=== PATIENT | male | born 1955 | race Caucasian/White ===

== ENCOUNTER 2016-11-23 20:21 | Inpatient (IN) | payer BC, MEDICARE ==
[~2016-11-23] VITALS: Ht 180.3 cm; Wt 114.6 kg
[~2016-11-23 20:21] MED LIST: AMLO5TAB96; ASPI81; ATOR20TA42; GLUC5TAB3; TOPR25TA2
[2016-11-23 20:24] VITALS: BP 197/89; PULSE 75; RESP 20; TEMP 97.5; O2SAT 100
[2016-11-23 20:30] VITALS: PULSE 59; RESP 18; O2SAT 100
[2016-11-23] MEDS ORDERED: PIPERACIL-TAZO 3.375 GM PREMIX 50 ML IV ONE (20:45)
[2016-11-23] MEDS ORDERED: VANCOMYCIN INJ 1,000 MG in SODIUM CHLOR 0.9% 250 ML INJ 250 ML IV ONE (20:45)
--- NOTE | 2016-11-23 20:45 | PD ---
Physical Exam Narrative Patient was seen and examined with my visitor services information assistant. Data Data Last Documented VS Vital Signs Date Time Temp Pulse Resp B/P Pulse Ox O2 Delivery O2 Flow Rate FiO2 11/23/16 21:52 61 22 154/70 99 Nasal Cannula 2 11/23/16 20:24 97.5 Orders Electrocardiogram (11/23/16 20:26) Complete Blood Count With Diff (11/23/16 20:26) Comprehensive Metabolic Panel (11/23/16 20:26) Prothrombin Time / Inr (Pt) (11/23/16 20:26) Act Partial Throm Time (Ptt) (11/23/16 20:26) Blood Culture (11/23/16 20:26) C-Reactive Protein (Crp) (11/23/16 20:26) Magnesium (Mg) (11/23/16 20:26) Chest, Single Ap (11/23/16 20:26) Iv Access Insert/Monitor (11/23/16 20:26) Ecg Monitoring (11/23/16 20:26) Oximetry (11/23/16 20:26) Ct Soft Tiss Neck W Iv Cont (11/23/16 ) Ct Thorax/ Chest W Iv Contrast (11/23/16 ) Lactic Acid (11/23/16 20:32) Vancomycin Inj (Vancomycin Inj) (11/23/16 20:45) Piperacil-Tazo 3.375 Gm Premix (Zosyn 3. (11/23/16 20:45) Arterial Blood Gas (Abg) (11/23/16 ) Iohexol 350 Inj (Omnipaque 350 Inj) (11/23/16 22:19) Labs Laboratory Tests Test 11/23/16 11/23/16 20:30 20:47 White Blood Count 8.4 TH/MM3 Red Blood Count 3.20 MIL/MM3 Hemoglobin 9.7 GM/DL Hematocrit 27.9 % Mean Corpuscular Volume 87.2 FL Mean Corpuscular Hemoglobin 30.4 PG Mean Corpuscular Hemoglobin 34.9 % Concent Red Cell Distribution Width 12.9 % Platelet Count 277 TH/MM3 Mean Platelet Volume 8.0 FL Neutrophils (%) (Auto) 68.4 % Lymphocytes (%) (Auto) 18.0 % Monocytes (%) (Auto) 11.0 % Eosinophils (%) (Auto) 2.1 % Basophils (%) (Auto) 0.5 % Neutrophils # (Auto) 5.7 TH/MM3 Lymphocytes # (Auto) 1.5 TH/MM3 Monocytes # (Auto) 0.9 TH/MM3 Eosinophils # (Auto) 0.2 TH/MM3 Basophils # (Auto) 0.0 TH/MM3 CBC Comment DIFF FINAL Differential Comment Prothrombin Time 10.4 SEC Prothromb Time International 0.9 RATIO Ratio Activated Partial 27.3 SEC Thromboplast Time Sodium Level 134 MEQ/L Potassium Level 4.3 MEQ/L Chloride Level 97 MEQ/L Carbon Dioxide Level 29.2 MEQ/L Anion Gap 8 MEQ/L Blood Urea Nitrogen 9 MG/DL Creatinine 0.72 MG/DL Estimat Glomerular Filtration 110 ML/MIN Rate Random Glucose 199 MG/DL Lactic Acid Level 1.3 mmol/L Calcium Level 9.1 MG/DL Magnesium Level 2.0 MG/DL Total Bilirubin 0.3 MG/DL Aspartate Amino Transf 25 U/L (AST/SGOT) Alanine Aminotransferase 34 U/L (ALT/SGPT) Alkaline Phosphatase 82 U/L C-Reactive Protein 2.00 MG/DL Total Protein 7.1 GM/DL Albumin 3.2 GM/DL Blood Gas Puncture Site RT RADIAL Blood Gas Patient Temperature 98.6 Blood Gas HCO3 26 mmol/L Blood Gas Base Excess 2.6 mmol/L Blood Gas Oxygen Saturation 93 % Arterial Blood pH 7.49 Arterial Blood Partial 35 mmHg Pressure CO2 Arterial Blood Partial 85 mmHG Pressure O2 Arterial Blood Oxygen Content 13.1 Vol % Arterial Blood 2.3 % Carboxyhemoglobin Arterial Blood Methemoglobin 1.8 % Blood Gas Hemoglobin 9.9 G/DL Oxygen Delivery Device NASAL CANNULA Blood Gas Liter Flow 2 L/M [facility] Supervised Visit with BENITO: Yes Interpretation(s) Last Impressions Chest X-Ray 11/23/162025 Signed Impressions: Service Date/Time: Wednesday, November 23, 2016 20:42 - CONCLUSION: No acute disease. Derrick Hooks MD Neck CT 11/23/16 0000 Signed Impressions: Service Date/Time: Wednesday, November 23, 2016 22:17 - CONCLUSION: 1. Postsurgical changes left face, neck and left chest. 2. Airway is intact. Derrick Hooks MD Chest CT 11/23/16 0000 Signed Impressions: Service Date/Time: Wednesday, November 23, 2016 22:17 - CONCLUSION: 1. No infiltrate, mass or pleural effusion. 2. 7 mm nodule in the right lower lobe, likely benign. Followup CT chest in 3 months recommended for stability. 3. Cardiomegaly and coronary artery calcifications. Derrick Hooks MD 11:03 PM. CBC with WBC 8.4. Hemoglobin 9.7. Hematocrit 27.9. Normal differential. Sodium 134. Lactic acid 1.3. Glucose 199. C-reactive protein 2.0. ABG at 2 L nasal cannula, pH 7.49. PCO2 35. PO2 85. Narrative Course Vancomycin 1 g IV given. Zosyn 3.375 g IV given. Normal saline solution 1 25 cc an hour. Diagnosis Primary Impression: Cellulitis, neck Admitting Information Admitting Physician Requests: Admit Kayode Alva MD Nov 23, 2016 20:44
--- NOTE | 2016-11-23 20:50 | PD ---
HPI Chief Complaint: Back/ Neck Pain or Injury Time Seen by Provider: 20:45 Travel History International Travel<30 days: No Contact w/Intl Traveler<30days: No Traveled to known affect area: No History of Present Illness HPI 61-year-old male that presents to the ED for evaluation of shortness of breath and pain in his neck. 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 Per patient his been doing well since but for the past 5 hours his been having more shortness of breath and pain in the left side of his body. Patient is already given pain medication for this. Surgery occurring [place]. Per patient his pain is 10 out of 10 and he feels like he cannot swallow secondary to the swelling. He denies any fevers chills or sweats. Patient has fresh surgical scars on his chest, neck, left face and behind the left ear. Patient for she did not come with any medical records from the surgical area but does stay on the rehabilitation facility where he was sent after having the surgery. He has an allergy to morphine. Patient already takes a fentanyl patch. Patient complains to the shortness of breath is more because he doesn't feel like he can't breathe because there is something in his neck. Patient does have significant swelling in this area and surgical scars in the area. He does have erythema around it as well. PFSH Past Medical History Arthritis: Yes Asthma: No Autoimmune Disease: No Blood Disorders: No Heart Rhythm Problems: No Cancer: No Cardiovascular Problems: Yes High Cholesterol: Yes Chest Pain: No Congestive Heart Failure: No COPD: No Cerebrovascular Accident: No Diabetes: Yes Patient Takes Glucophage: No Diminished Hearing: No Endocrine: Yes Glaucoma: No Genitourinary: No Headaches: No Hepatitis: No Hypertension: Yes Immune Disorder: No Kidney Stones: No Musculoskeletal: Yes Neurologic: No Psychiatric: No Reproductive: No Respiratory: No Migraines: No Myocardial Infarction: No Renal Failure: No Seizures: No Sleep Apnea: No Thyroid Disease: No Past Surgical History Abdominal Surgery: Yes (APPENDECTOMY) AICD: No Appendectomy: Yes Arteriovenous Shunt: No Cardiac Surgery: No Ear Surgery: No Endocrine Surgery: No Eye Surgery: No Genitourinary Surgery: No Gynecologic Surgery: No Insulin Pump: No Joint Replacement: No Oral Surgery: Yes (ORAL RECONSTRUCTIVE DUE TO CANCER ) Pacemaker: No Thoracic Surgery: No Other Surgery: Yes Social History Alcohol Use: Yes (SOCIALLY, BEER) Tobacco Use: No Substance Use: No Allergies-Medications (Allergen,Severity, Reaction): Coded Allergies: Morphine (Verified Allergy, Unknown, swelling, 11/23/16) Reported Meds & Prescriptions Reported Meds & Active Scripts Active Reported Clopidogrel (Clopidogrel Bisulfate) 75 Mg Tab 75 Mg PO DAILY Bupropion HCl 100 Mg Tab 100 Mg PO BID Acetaminophen Liq (Acetaminophen) 160 Mg/5 Ml Elx 20.3 Mg PO Q6HR PRN Ambien (Zolpidem Tartrate) 10 Mg Tab 10 Mg PO HS PRN Finasteride Powder (Bulk) 1 Pow Pow 5 Mg PO DAILY Atorvastatin (Atorvastatin Calcium) 40 Mg Tab 40 Mg PO HS Oxycodone Liq (Oxycodone HCl) 5 Mg/5 Ml Yolanda 15 Ml PO Q4HR Oxycodone Liq (Oxycodone HCl) 5 Mg/5 Ml Yolanda 10 Ml PO Q4HR Omeprazole 20 Mg Tab 20 Mg PO BID Riomet Liq (Metformin HCl) 500 Mg/5 Ml Soln 1,000 Mg PO BIDPC Tamsulosin (Tamsulosin HCl) 0.4 Mg Cap 0.4 Mg PO DAILY Lantus Solostar Pen Inj (Insulin Glargine) 300 Unit/3 Ml Pen 20 Units SQ HS Fentanyl Patch 72 HR (Fentanyl) 75 Mcg/Hr Patch 75 Mcg T-DERMAL Q72H Remove old patch when new one placed. Lisinopril 20 Mg Tab 20 Mg PO DAILY Glipizide 5 Mg Tab 2.5 Mg PO DAILY Take 30 minutes before a meal Dulcolax Supp (Bisacodyl) 10 Mg Supp 10 Mg RECTAL DAILY PRN Milk of Magnesia Liq (Magnesium Hydroxide) 400 Mg/5 Ml Susp 30 Ml PO DAILY PRN Review of Systems General / Constitutional: No: Fever, Chills, Weight Gain, Weight Loss, Other Eyes: No: Diploplia, Blurred Vision, Photophobia, Drainage, Redness, Foreign Body Sensation, Pain, Tearing, Blind Spots, Visual changes, Blindness, Other HENT: Positive: Sore Throat, Neck Stiffness, Neck Pain, Masses, No: Headaches , Vertigo, Lightheadedness, Rhinitis, Rhinorrhea, Congestion, Nosebleed, Gingival Bleeding, Dental Difficulties, Ear Discharge, Earache, Other Cardiovascular: No: Chest Pain or Discomfort, Palpitations, Irregular Rhythm, Tachycardia, Diaphoresis, Syncope, Dyspnea on exertion, Varicosities, Edema, Cyanosis, Varicosities, Phlebitis, Claudication, Other Respiratory: No: Cough, Shortness of Breath, Wheezing, Sneezing, Orthopnea, Hemoptysis, Stridor, Night Sweats, Pleuritic Pain, Other Gastrointestinal: No: Nausea, Vomiting, Diarrhea, Abdominal Pain, Hematemesis, Hematochezia, Constipation, Changes in Bowel Habits, Indigestion, Dysphagia, Loss of Appetite, Other Genitourinary: No: Urgency, Frequency, Dysuria, Nocturia, Hematuria, Decreased Urinary Output, Oliguria, Hesitancy, Dribbling, Incontinence, Pelvic Pain, Flank Pain, Dyspareunia, Discharge, Dysmenorrhea, Menorrhagia, Metorrhagia, Vaginal Bleeding, Other Musculoskeletal: Positive: Edema, Pain, No: Myalgias, Arthralgias, Limited ROM , Weakness, Cramping, Atrophy, Other Skin: Positive Rash, No Itching, No Dryness, No Lumps, No Hives, No Change in Pigmentation, No Change in nails, No Alopecia, No Lesions, No Breast Lumps, No Breast Tenderness, No Breast Swelling, No Other Neurologic: No: Weakness, Dizziness, Syncope, Focal Abnormalities, Coordination Problem, Tremor, Ataxia, Headache, Change in Mentation, Slurred Speech, Paresthesia, Incontinence, Seizures, Sensory Disturbance, Other Psychiatric: No: Anxiety, Depression, Suicidal Ideations, Disorder of Thought, Mood Disorder, Substance Abuse, Homicidal Ideation, Other Endocrine: No: Heat Intolerance, Cold Intolerance, Polyuria, Polydipsia, Other Hematologic/Lymphatic: No: Easy Bruising, Lymph Node Enlargement, Other Physical Exam Narrative GENERAL: SKIN: Warm and dry. HEAD: Atraumatic. Normocephalic. EYES: Pupils equal and round. No scleral icterus. No injection or drainage. ENT: No nasal bleeding or discharge. Mucous membranes pink and moist. Tongue is midline. No uvula deviation. Patient does have significant swelling on the left side of the neck and face. Patient has multiple surgical scars. Erythema noted what appears to be also purulence from some of the surgical scar noted especially on the left mandible area. Patient does have surgical scars to the chest as well as to the neck that appear to be well. Patient has a drain in his left chest that appears to be draining blood and serosanguineous fluid but no sign of purulence. Patient is very sensitive to touch on the left face. NECK: Trachea midline. No JVD. CARDIOVASCULAR: Regular rate and rhythm. No murmurs, S3, S4. RESPIRATORY: No accessory muscle use. Clear to auscultation. Breath sounds equal bilaterally. GASTROINTESTINAL: Abdomen soft, non-tender, nondistended. Hepatic and splenic margins not palpable. MUSCULOSKELETAL: Extremities without clubbing, cyanosis, or edema. No obvious deformities. Full range of motion of the upper and lower extremities bilaterally. 2+ pulses bilaterally. NEUROLOGICAL: Awake and alert. No obvious cranial nerve deficits. Motor grossly within normal limits. Five out of 5 muscle strength in the arms and legs. Normal speech. PSYCHIATRIC: Appropriate mood and affect; insight and judgment normal. Data Data Last Documented VS Vital Signs Date Time Temp Pulse Resp B/P Pulse Ox O2 Delivery O2 Flow Rate FiO2 11/23/16 21:52 61 22 154/70 99 Nasal Cannula 2 11/23/16 20:24 97.5 Orders Electrocardiogram (11/23/16 20:26) Complete Blood Count With Diff (11/23/16 20:26) Comprehensive Metabolic Panel (11/23/16 20:26) Prothrombin Time / Inr (Pt) (11/23/16 20:26) Act Partial Throm Time (Ptt) (11/23/16 20:26) Blood Culture (11/23/16 20:26) C-Reactive Protein (Crp) (11/23/16 20:26) Magnesium (Mg) (11/23/16 20:26) Chest, Single Ap (11/23/16 20:26) Iv Access Insert/Monitor (11/23/16 20:26) Ecg Monitoring (11/23/16 20:26) Oximetry (11/23/16 20:26) Ct Soft Tiss Neck W Iv Cont (11/23/16 ) Ct Thorax/ Chest W Iv Contrast (11/23/16 ) Lactic Acid (11/23/16 20:32) Vancomycin Inj (Vancomycin Inj) (11/23/16 20:45) Piperacil-Tazo 3.375 Gm Premix (Zosyn 3. (11/23/16 20:45) Arterial Blood Gas (Abg) (11/23/16 ) Iohexol 350 Inj (Omnipaque 350 Inj) (11/23/16 22:19) Labs Laboratory Tests Test 11/23/16 11/23/16 20:30 20:47 White Blood Count 8.4 TH/MM3 Red Blood Count 3.20 MIL/MM3 Hemoglobin 9.7 GM/DL Hematocrit 27.9 % Mean Corpuscular Volume 87.2 FL Mean Corpuscular Hemoglobin 30.4 PG Mean Corpuscular Hemoglobin 34.9 % Concent Red Cell Distribution Width 12.9 % Platelet Count 277 TH/MM3 Mean Platelet Volume 8.0 FL Neutrophils (%) (Auto) 68.4 % Lymphocytes (%) (Auto) 18.0 % Monocytes (%) (Auto) 11.0 % Eosinophils (%) (Auto) 2.1 % Basophils (%) (Auto) 0.5 % Neutrophils # (Auto) 5.7 TH/MM3 Lymphocytes # (Auto) 1.5 TH/MM3 Monocytes # (Auto) 0.9 TH/MM3 Eosinophils # (Auto) 0.2 TH/MM3 Basophils # (Auto) 0.0 TH/MM3 CBC Comment DIFF FINAL Differential Comment Prothrombin Time 10.4 SEC Prothromb Time International 0.9 RATIO Ratio Activated Partial 27.3 SEC Thromboplast Time Sodium Level 134 MEQ/L Potassium Level 4.3 MEQ/L Chloride Level 97 MEQ/L Carbon Dioxide Level 29.2 MEQ/L Anion Gap 8 MEQ/L Blood Urea Nitrogen 9 MG/DL Creatinine 0.72 MG/DL Estimat Glomerular Filtration 110 ML/MIN Rate Random Glucose 199 MG/DL Lactic Acid Level 1.3 mmol/L Calcium Level 9.1 MG/DL Magnesium Level 2.0 MG/DL Total Bilirubin 0.3 MG/DL Aspartate Amino Transf 25 U/L (AST/SGOT) Alanine Aminotransferase 34 U/L (ALT/SGPT) Alkaline Phosphatase 82 U/L C-Reactive Protein 2.00 MG/DL Total Protein 7.1 GM/DL Albumin 3.2 GM/DL Blood Gas Puncture Site RT RADIAL Blood Gas Patient Temperature 98.6 Blood Gas HCO3 26 mmol/L Blood Gas Base Excess 2.6 mmol/L Blood Gas Oxygen Saturation 93 % Arterial Blood pH 7.49 Arterial Blood Partial 35 mmHg Pressure CO2 Arterial Blood Partial 85 mmHG Pressure O2 Arterial Blood Oxygen Content 13.1 Vol % Arterial Blood 2.3 % Carboxyhemoglobin Arterial Blood Methemoglobin 1.8 % Blood Gas Hemoglobin 9.9 G/DL Oxygen Delivery Device NASAL CANNULA Blood Gas Liter Flow 2 L/M MDM Medical Decision Making Medical Screen Exam Complete: Yes Emergency Medical Condition: Yes Medical Record Reviewed: Yes Interpretation(s) CBC & BMP Diagram 11/23/16 20:30 lactic negative Differential Diagnosis Postsurgical infection versus infection versus abscess versus dysphagia versus anaphylaxis versus cancer versus postop pain Narrative Course 61-year-old male that presents to the ED for evaluation of pain and swelling on his neck. As well as shortness of breath. Patient was properly examined and was found to have signs and symptoms which appear to be consistent with likely infection from surgical site on the neck has and swelling and pain as well as inability to swallow and sensation of inability to breathe. Patient is satting okay at this time. My attending Dr. smith evaluated the patient and agrees with plan. CT is ordered. Labs ordered. Case was signed out to my attending pending labs and imaging results and disposition. Lavell Sevilla Nov 23, 2016 20:50
[2016-11-23 20:54] LABS: BLOOD GAS BASE EXCESS 2.6 mmol/L (-2-2); BLOOD GAS CARBOXYHEMOGLOBIN 2.3 % (0-4); BLOOD GAS HCO3 26 mmol/L (22-26); BLOOD GAS METHEMOGLOBIN 1.8 % (0-2); BLOOD GAS O2 HGB SATURATION 93 % (90-100); BLOOD GAS OXYGEN CONTENT 13.1 Vol % (12.0-20.0); BLOOD GAS PCO2 35 mmHg (38-42); BLOOD GAS PO2 85 mmHG (61-120); BLOOD GAS TOTAL HGB 9.9 G/DL (12.0-16.0); TEMP CORR TO 98.6
[2016-11-23 20:55] LABS: CRITICAL VALUE NO; OXYGEN DEVICE NASAL CANNULA
[2016-11-23 20:56] LABS: DRAW SITE RT RADIAL; LITER FLOW 2 L/M; NUMBER OF ARTERIAL PUNCTURES 1; STAT NO; ULNAR PULSE PRESENT
[2016-11-23] MEDS ORDERED: DULC10SU3 RECTAL (20:57)
[2016-11-23] MEDS ORDERED: LANTINJ SQ (20:57)
[2016-11-23] MEDS ORDERED: OMEP20TA PO (20:57)
[2016-11-23] MEDS ORDERED: LISI-515 PO (20:57)
[2016-11-23] MEDS ORDERED: RIOMSOL PO (20:57)
[2016-11-23] MEDS ORDERED: OXYC1SOL3 PO ×2 (20:57→20:58)
[2016-11-23] MEDS ORDERED: TAMS0.4C4 PO (20:57)
[2016-11-23] MEDS ORDERED: MILKSUS PO (20:57)
[2016-11-23] MEDS ORDERED: GLIP5TAB8 PO (20:57)
[2016-11-23] MEDS ORDERED: FENT75DI T-DERMAL (20:57)
[2016-11-23] MEDS ORDERED: BUPR100T4 PO (20:58)
[2016-11-23] MEDS ORDERED: ATOR40TA16 PO (20:58)
[2016-11-23] MEDS ORDERED: [UNRECOGNIZED DRUG - CODE] PO (20:58)
[2016-11-23] MEDS ORDERED: AMBI10TA PO (20:58)
[2016-11-23] MEDS ORDERED: CLOP75TA PO (20:58)
[2016-11-23] MEDS ORDERED: ACET160E PO (20:58)
--- NOTE | 2016-11-23 20:58 | RADRPT ---
EXAM DATE/TIME: 11/23/2016 20:42 [facility] COMPARISON: No previous studies available for comparison. INDICATIONS : Short of Breath MEDICAL HISTORY : Hypertension. Carcinoma, oral cavity. SURGICAL HISTORY : Oral reconstructive surgery due Cancer ENCOUNTER: Initial ACUITY: 1 day PAIN SCORE: 0/10 LOCATION: Bilateral chest FINDINGS: A single view of the chest demonstrates the lungs to be symmetrically aerated without evidence of mas s, infiltrate or effusion. The cardiomediastinal contours are unremarkable. Osseous structures are intact. Surgical ebenezer along the left neck and left lower chest. Old rib fracture. CONCLUSION: No acute disease. Derrick Hooks MD on November 23, 2016 at 20:56 Board Certified Radiologist. This report was verified electronically.
[2016-11-23 21:10] LABS: AUTOMATED NEUTROPHIL # 5.7 TH/MM3 (1.8-7.7); BASOPHIL % 0.5 % (0.0-2.0); EOSINOPHIL # 0.2 TH/MM3 (0-0.4); EOSINOPHIL % 2.1 % (0.0-4.0); HEMATOCRIT 27.9 % (39.0-51.0); HEMO FLAGS DIFF FINAL; LYMPHOCYTE # 1.5 TH/MM3 (1.0-4.8); MEAN CELL VOLUME 87.2 FL (80.0-100.0); MEAN CORPUSCULAR HEMOGLOBIN 30.4 PG (27.0-34.0); MEAN CORPUSCULAR HGB CONC 34.9 % (32.0-36.0); NEUT % 68.4 % (16.0-70.0); PLATELET COUNT 277 TH/MM3 (150-450); RED CELL DISTRIBUTION WIDTH 12.9 % (11.6-17.2); WHITE BLOOD COUNT 8.4 TH/MM3 (4.0-11.0)
[2016-11-23 21:23] LABS: APTT (PATIENT) 27.3 SEC (24.3-30.1); INTERNATIONAL NORMALIZED RATIO 0.9 RATIO; PROTHROMBIN TIME - PATIENT 10.4 SEC (9.8-11.6)
[2016-11-23 21:28] LABS: ANION GAP 8 MEQ/L (5-15); AST (GOT) 25 U/L (15-37); BICARBONATE 29.2 MEQ/L (21.0-32.0); BLOOD UREA NITROGEN 9 MG/DL (7-18); CHLORIDE 97 MEQ/L (98-107); GLOMERULAR FILTRATION RATE 110 ML/MIN (>89); POTASSIUM 4.3 MEQ/L (3.5-5.1); SODIUM (NA) 134 MEQ/L (136-145)
[2016-11-23 21:31] LABS: ALKALINE PHOSPHATASE 82 U/L (45-117); ALT (GPT) 34 U/L (12-78); TOTAL BILIRUBIN ADULT 0.3 MG/DL (0.2-1.0)
[2016-11-23 21:52] VITALS: BP 154/70; PULSE 61; RESP 22; O2SAT 99
[2016-11-23] MEDS ORDERED: IOHEXOL 350 MG/ML 10 ML VIAL (for RAD DIAG) IV ONE (22:19)
--- NOTE | 2016-11-23 22:21 | EKG ---
Date Performed: 11/23/2016 Time Performed: 20:33:34 PTAGE: 61 years EKG: ECTOPIC ATRIAL RHYTHM WITH FIRST DEGREE AV BLOCK BORDERLINE LEFT AXIS DEVIATION NONSPECIFIC INTRAVENTRICULAR CONDUCTION DELAY NONSPECIFIC T-WAVE ABNORMALITY ABNORMAL ECG PREVIOUS TRACING : 06/13/2006 10.47 No significant change from previous tracing noted. DOCTOR: Geovanni Pearson Interpretating Date/Time 11/23/2016 22:20:08
--- NOTE | 2016-11-23 22:34 | RADRPT ---
EXAM DATE/TIME: 11/23/2016 22:17 [facility] COMPARISON: No previous studies available for comparison. INDICATIONS : Throat swelling and dysphagia post surgery / skin graft. IV CONTRAST: 30 cc Omnipaque 350 (iohexol) IV RADIATION DOSE: 26.51 CTDIvol (mGy) MEDICAL HISTORY : Hypertension. Cardiovascular disease SURGICAL HISTORY : Recent jaw surgery due to cancer. ENCOUNTER: Initial ACUITY: 1 day PAIN SCALE: 5/10 LOCATION: neck TECHNIQUE: Volumetric scanning of the neck was performed. Using automated exposure control and adjustment of th e mA and/or kV according to patient size, radiation dose was kept as low as reasonably achievable to obtain optimal diagnostic quality images. FINDINGS: NASOPHARYNX: The nasopharyngeal airway has a normal configuration. No mucosal thickening or mass is seen. OROPHARYNX: The intrinsic muscles of the tongue are symmetric. The tonsillar pillars are intact. The prevertebr al soft tissues are not thickened. LARYNX: The supraglottic, glottic, and infraglottic structures are intact. PARAPHARYNGEAL: The parapharyngeal space is intact. SALIVARY GLANDS: The parotid and submandibular glands are intact. LYMPH NODES: No enlarged or necrotic-appearing nodes. THYROID: Homogeneous enhancement without evidence of nodule. BONES: Portions of the left mandible has been resected with plate and screws noted. Postsurgical changes javy ng the left face, left neck and left chest with large skin graft placement. Prominent soft tissue swe lling seen. CONCLUSION: 1. Postsurgical changes left face, neck and left chest. 2. Airway is intact. Derrick Hooks MD on November 23, 2016 at 22:28 Board Certified Radiologist. This report was verified electronically.
--- NOTE | 2016-11-23 22:36 | RADRPT ---
EXAM DATE/TIME: 11/23/2016 22:17 [facility] COMPARISON: No previous studies available for comparison. INDICATIONS : Short of breath post surgery / skin graft. IV CONTRAST: 70 cc Omnipaque 350 (iohexol) IV RADIATION DOSE: 10.03 CTDIvol (mGy) MEDICAL HISTORY : Hypertension. Cardiovascular disease SURGICAL HISTORY : Recent jaw surgery due to cancer. ENCOUNTER: Initial ACUITY: 1 day PAIN SCALE: 2/10 LOCATION: chest TECHNIQUE: Volumetric scanning of the chest was performed. Using automated exposure control and adjustment of t he mA and/or kV according to patient size, radiation dose was kept as low as reasonably achievable to obtain optimal diagnostic quality images. FINDINGS: LUNGS: There is no consolidation or pneumothorax. 7 mm nodule right lower lobe superior segment. PLEURA: There is no pleural thickening or pleural effusion. MEDIASTINUM: The heart and great vessels demonstrate no acute abnormality. There is no mediastinal or hilar lymph adenopathy. Cardiomegaly and coronary artery calcifications. AXILLAE: Within normal limits. No lymphadenopathy. SKELETAL: Within normal limits for patient age. MISCELLANEOUS: The visualized upper abdominal organs demonstrate no acute abnormality. Postsurgical changes left ant erior chest wall with skin graft extending into the left neck. CONCLUSION: 1. No infiltrate, mass or pleural effusion. 2. 7 mm nodule in the right lower lobe, likely benign. Followup CT chest in 3 months recommended for stability. 3. Cardiomegaly and coronary artery calcifications. Derrick Hooks MD on November 23, 2016 at 22:32 Board Certified Radiologist. This report was verified electronically.
[2016-11-23] MEDS: SODIUM CHLOR 0.9% 1000 ML INJ 1,000 ML IV SCH (23:16)
[2016-11-23 23:30] VITALS: BP 155/70; PULSE 68; RESP 22; O2SAT 97
--- NOTE | 2016-11-23 23:36 | HHI.HP ---
HPI Service Critical Care Medicine Primary Care Physician No Primary Care Physician Admission Diagnosis neck cellulitis. Dyspnea. Diagnosis: Travel History International Travel<30 Days: No Contact w/Intl Traveler <30 Da: No Traveled to Known Affected Are: No History of Present Illness 61-year-old male that presents for evaluation of pain in his neck. 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 Per patient has been doing well since but for the past 5 hours his been having more shortness of breath and pain in the left side of his body. He denies any fevers chills or sweats. Patient has fresh surgical scars on his chest, neck, left face and behind the left ear. He has an allergy to morphine and takes a fentanyl patch. Patient does have significant swelling in this area and surgical scars in the area. He does have erythema around it as well. Review of Systems Constitutional: DENIES: Diaphoretic episodes, Fatigue, Fever, Weight gain, Weight loss, Chills, Dizziness, Change in appetite, Night Sweats Endocrine: DENIES: Heat/cold intolerance, Polydipsia, Polyuria, Polyphagia Eyes: DENIES: Blurred vision, Diplopia, Eye inflammation, Eye pain, Vision loss , Photosensitivity, Double Vision Ears, nose, mouth, throat: DENIES: Tinnitus, Hearing loss, Vertigo, Nasal discharge, Oral lesions, Throat pain, Hoarseness, Ear Pain, Running Nose, Epistaxis, Sinus Pain, Toothache, Odynophagia Respiratory: COMPLAINS OF: Shortness of breath, DENIES: Apneas, Cough, Snoring , Wheezing, Hemoptysis, Sputum production Cardiovascular: DENIES: Chest pain, Palpitations, Syncope, Dyspnea on Exertion , PND, Lower Extremity Edema, Orthopnea, Claudication Gastrointestinal: COMPLAINS OF: Difficulty Swallowing, DENIES: Abdominal pain , Black stools, Bloody stools, Constipation, Diarrhea, Nausea, Vomiting, Anorexia Genitourinary: DENIES: Sexual dysfunction, Urinary frequency, Urinary incontinence, Urgency, Hematuria, Dysuria, Nocturia, Penile Discharge, Testicular Pain, Testicular Swelling Musculoskeletal: DENIES: Joint pain, Muscle aches, Stiffness, Joint Swelling, Back pain, Neck pain Integumentary: DENIES: Abnormal pigmentation, Nail changes, Pruritus, Rash Hematologic/lymphatic: DENIES: Bruising, Lymphadenopathy Immunologic/allergic: DENIES: Eczema, Urticaria Neurologic: DENIES: Abnormal gait, Headache, Localized weakness, Paresthesias, Seizures, Speech Problems, Tremor, Poor Balance Psychiatric: DENIES: Anxiety, Confusion, Mood changes, Depression, Hallucinations, Agitation, Suicidal Ideation, Homicidal Ideation, Delusions Past Family Social History Allergies: Coded Allergies: Morphine (Verified Allergy, Unknown, swelling, 11/23/16) Past Medical History Left jaw carcinoma in situ Arthritis: High Cholesterol Diabetes Hypertension Past Surgical History Appendectomy ORAL RECONSTRUCTIVE DUE TO CANCER Reported Medications Reported Meds & Active Scripts Active Reported Clopidogrel (Clopidogrel Bisulfate) 75 Mg Tab 75 Mg PO DAILY Bupropion HCl 100 Mg Tab 100 Mg PO BID Acetaminophen Liq (Acetaminophen) 160 Mg/5 Ml Elx 20.3 Mg PO Q6HR PRN Ambien (Zolpidem Tartrate) 10 Mg Tab 10 Mg PO HS PRN Finasteride Powder (Bulk) 1 Pow Pow 5 Mg PO DAILY Atorvastatin (Atorvastatin Calcium) 40 Mg Tab 40 Mg PO HS Oxycodone Liq (Oxycodone HCl) 5 Mg/5 Ml Yolanda 15 Ml PO Q4HR Oxycodone Liq (Oxycodone HCl) 5 Mg/5 Ml Yolanda 10 Ml PO Q4HR Omeprazole 20 Mg Tab 20 Mg PO BID Riomet Liq (Metformin HCl) 500 Mg/5 Ml Soln 1,000 Mg PO BIDPC Tamsulosin (Tamsulosin HCl) 0.4 Mg Cap 0.4 Mg PO DAILY Lantus Solostar Pen Inj (Insulin Glargine) 300 Unit/3 Ml Pen 20 Units SQ HS Fentanyl Patch 72 HR (Fentanyl) 75 Mcg/Hr Patch 75 Mcg T-DERMAL Q72H Remove old patch when new one placed. Lisinopril 20 Mg Tab 20 Mg PO DAILY Glipizide 5 Mg Tab 2.5 Mg PO DAILY Take 30 minutes before a meal Dulcolax Supp (Bisacodyl) 10 Mg Supp 10 Mg RECTAL DAILY PRN Milk of Magnesia Liq (Magnesium Hydroxide) 400 Mg/5 Ml Susp 30 Ml PO DAILY PRN Active Ordered Medications Current Medications Medications (Trade) Dose Ordered Sig/Lexie Route PRN Reason Start Time Stop Time Status Last Admin Dose Admin Sodium Chloride (NS 1000 ml Inj) 1,000 ml @ 125 mls/hr Q8H IV 11/23/16 23:15 11/23/16 23:16 IV Flush (NS Flush) 2 ml UNSCH PRN IV FLUSH FLUSH AFTER USING IV ACCESS 11/24/16 00:00 IV Flush (NS Flush) 2 ml BID IV FLUSH 11/24/16 09:00 Acetaminophen (Tylenol) 650 mg Q6H PRN PO FEVER >101F 11/24/16 00:00 Oxycodone/ Acetaminophen (Percocet 5-325 Mg) 1 tab Q4H PRN PO PAIN SCALE 1 TO 5 11/24/16 00:00 Morphine Sulfate (Morphine Inj) 2 mg Q2H PRN IV PAIN SCALE 6 TO 10 11/24/16 00:00 UNV Famotidine (Pepcid Inj) 20 mg Q12HR IV PUSH 11/24/16 09:00 Ondansetron HCl (Zofran Inj) 4 mg Q6H PRN IV NAUSEA OR VOMITING 11/24/16 00:00 Metoclopramide HCl (Reglan Inj) 10 mg Q6H PRN IV NAUSEA OR VOMITING 11/24/16 00:00 Docusate Sodium (Colace) 100 mg BID PO 11/24/16 09:00 Zolpidem Tartrate (Ambien) 5 mg HS PRN PO INSOMNIA 11/24/16 00:00 Enoxaparin Sodium (Lovenox Inj) 40 mg Q24H SQ 11/24/16 00:00 Miscellaneous Information 1 Q361D XX 11/24/16 00:00 Chlorhexidine Gluconate (Chlorhexidine 2% Cloth) 3 pack Taper DAILY@04 TOP 11/24/16 04:00 11/20/17 03:59 Chlorhexidine Gluconate (Chlorhexidine 2% Cloth) 3 pack UNSCH PRN TOP HYGIENIC CARE 11/24/16 00:00 Family History Noncontributory Social History Negative 3 Physical Exam Vital Signs Vital Signs Date Time Temp Pulse Resp B/P Pulse Ox O2 Delivery O2 Flow Rate FiO2 11/23/16 21:52 61 22 154/70 99 Nasal Cannula 2 11/23/16 20:30 59 18 100 11/23/16 20:30 60 20 11/23/16 20:24 97.5 75 20 197/89 100 Physical Exam GENERAL: Well-nourished, well-developed patient. Large swelling and edema of the left neck, multiple incisions and scars on the left chest SKIN: Warm and dry. HEAD: Normocephalic. EYES: No scleral icterus. No injection or drainage. NECK: Supple, trachea midline. No JVD or lymphadenopathy. CARDIOVASCULAR: Regular rate and rhythm without murmurs, gallops, or rubs. RESPIRATORY: Breath sounds equal bilaterally. No accessory muscle use. GASTROINTESTINAL: Abdomen soft, non-tender, nondistended. MUSCULOSKELETAL: No cyanosis, or edema. BACK: Nontender without obvious deformity. No CVA tenderness. Laboratory Laboratory Tests Test 11/23/16 11/23/16 20:30 20:47 White Blood Count 8.4 Red Blood Count 3.20 Hemoglobin 9.7 Hematocrit 27.9 Mean Corpuscular Volume 87.2 Mean Corpuscular Hemoglobin 30.4 Mean Corpuscular Hemoglobin 34.9 Concent Red Cell Distribution Width 12.9 Platelet Count 277 Mean Platelet Volume 8.0 Neutrophils (%) (Auto) 68.4 Lymphocytes (%) (Auto) 18.0 Monocytes (%) (Auto) 11.0 Eosinophils (%) (Auto) 2.1 Basophils (%) (Auto) 0.5 Neutrophils # (Auto) 5.7 Lymphocytes # (Auto) 1.5 Monocytes # (Auto) 0.9 Eosinophils # (Auto) 0.2 Basophils # (Auto) 0.0 CBC Comment DIFF FINAL Differential Comment Prothrombin Time 10.4 Prothromb Time International 0.9 Ratio Activated Partial 27.3 Thromboplast Time Sodium Level 134 Potassium Level 4.3 Chloride Level 97 Carbon Dioxide Level 29.2 Anion Gap 8 Blood Urea Nitrogen 9 Creatinine 0.72 Estimat Glomerular Filtration 110 Rate Random Glucose 199 Lactic Acid Level 1.3 Calcium Level 9.1 Magnesium Level 2.0 Total Bilirubin 0.3 Aspartate Amino Transf 25 (AST/SGOT) Alanine Aminotransferase 34 (ALT/SGPT) Alkaline Phosphatase 82 C-Reactive Protein 2.00 Total Protein 7.1 Albumin 3.2 Blood Gas Puncture Site RT RADIAL Blood Gas Patient Temperature 98.6 Blood Gas HCO3 26 Blood Gas Base Excess 2.6 Blood Gas Oxygen Saturation 93 Arterial Blood pH 7.49 Arterial Blood Partial 35 Pressure CO2 Arterial Blood Partial 85 Pressure O2 Arterial Blood Oxygen Content 13.1 Arterial Blood 2.3 Carboxyhemoglobin Arterial Blood Methemoglobin 1.8 Blood Gas Hemoglobin 9.9 Oxygen Delivery Device NASAL CANNULA Blood Gas Liter Flow 2 Date/Time Procedure Status Source Growth 11/23/16 20:30 Aerobic Blood Culture Received Blood Peripheral Pending 11/23/16 20:30 Anaerobic Blood Culture Received Blood Peripheral Pending Result Diagram: 11/23/16202911/23/162029 Imaging Last 24 hours Impressions Chest X-Ray 11/23/162025 Signed Impressions: Service Date/Time: Wednesday, November 23, 2016 20:42 - CONCLUSION: No acute disease. Derrick Hooks MD Assessment and Plan Problem List: (1) Cellulitis, neck ICD Code: L03.221 Status: Acute Assessment and Plan Dysphagia - Edema of the soft tissue of the neck - Possibly cellulitis - Panculture - Vancomycin and Zosyn - De-escalation following microbiology Diabetes - Lentus - Insulin sliding scale - Hold metformin and glipizide while in the ICU Hypertension - Currently normotensive - Resume home meds History of coronary artery disease - Aspirin Plavix statin DVT GI prophylaxis - Lovenox and Pepcid Critical Care: The total critical care time was 35 minutes. Time to perform other separately billable procedures was not included in the critical care time. Jerome Bowers MD Nov 23, 2016 23:36
[2016-11-24] VITALS (18 sets, daily range): BP systolic 116–158; BP diastolic 56–71; PULSE 50–92; RESP 13–22; TEMP 97.7–98.8; O2SAT 92–100
[2016-11-24] MEDS ORDERED: MISCELLANEOUS NURSING INFORMATION XX SCH
[2016-11-24] MEDS ORDERED: ONDANSETRON HCL 4 MG/2 ML VIAL IV PRN
[2016-11-24] MEDS ORDERED: SODIUM CHLORIDE 0.9% FLUSH 5 ML FLUSH IV FLUSH PRN
[2016-11-24] MEDS ORDERED: RESP: ALBUTEROL 2.5 MG/IPRATROPIUM 0.5 MG NEB (PRN) INH
[2016-11-24] MEDS ORDERED: CHLORHEXIDINE GLUCONATE 2 % 1 PACK (2 CLOTHS) TOP PRN
[2016-11-24] MEDS ORDERED: METOCLOPRAMIDE HCL 10 MG/2 ML VIAL IV PRN
[2016-11-24] MEDS ORDERED: ACETAMINOPHEN 325 MG TAB PO PRN
[2016-11-24] MEDS ORDERED: MORPHINE SULFATE 4 MG/ML INJ IV PRN
[2016-11-24] MEDS ORDERED: DEXTROSE 50% IN WATER 50 ML VIAL(D50) IV PUSH PRN (00:15)
[2016-11-24] MEDS ORDERED: Vancomycin Consult Pharmacy 1 EA OTHER SCH (00:15)
[2016-11-24] MEDS ORDERED: GLUCAGON 1 MG/ML VIAL OTHER PRN (00:15)
[2016-11-24] MEDS: ENOXAPARIN SODIUM 40 MG/0.4 ML SYRINGE SQ SCH ×2 (00:27→22:39)
[2016-11-24] MEDS ORDERED: MAGNESIUM HYDROXIDE SUSP 30 ML CUP PO PRN (00:30)
[2016-11-24] MEDS: fentaNYL 75 MCG/HR PATCH T-DERMAL SCH (00:43)
[2016-11-24] MEDS: [UNRECOGNIZED DRUG - REMARK] TD SCH (01:05)
[2016-11-24] MEDS: CHLORHEXIDINE GLUCONATE 2 % 1 PACK (2 CLOTHS) TOP SCH (02:19)
[2016-11-24] MEDS: PIPERACIL-TAZO 3.375 GM PREMIX 50 ML IV SCH ×4 (02:19→19:50)
[2016-11-24] MEDS: oxyCODONE/ACETAMINOPHEN 5 MG/325 MG TAB PO PRN ×4 (02:20→19:52)
[2016-11-24] MEDS: ZOLPIDEM TARTRATE 5 MG TAB PO PRN ×2 (02:21→22:39)
[2016-11-24] MEDS ORDERED: VANCOMYCIN INJ 2,000 MG in SODIUM CHLORID 0.9% 500 ML INJ 500 ML IV ONE (05:00)
[2016-11-24] MEDS: INSULIN NovoLIN REGULAR SUPPLEMENTAL SCALE SQ SCH ×4 (05:42→19:52)
[2016-11-24 05:48] LABS: AUTOMATED NEUTROPHIL # 4.2 TH/MM3 (1.8-7.7); BASOPHIL % 0.6 % (0.0-2.0); EOSINOPHIL # 0.2 TH/MM3 (0-0.4); EOSINOPHIL % 2.7 % (0.0-4.0); HEMATOCRIT 26.6 % (39.0-51.0); HEMO FLAGS DIFF FINAL; LYMPHOCYTE # 1.6 TH/MM3 (1.0-4.8); MEAN CELL VOLUME 87.5 FL (80.0-100.0); MEAN CORPUSCULAR HEMOGLOBIN 29.8 PG (27.0-34.0); MEAN CORPUSCULAR HGB CONC 34.1 % (32.0-36.0); MONO % 10.1 % (0.0-8.0); NEUT % 62.6 % (16.0-70.0); PLATELET COUNT 256 TH/MM3 (150-450); RED BLOOD COUNT 3.05 MIL/MM3 (4.50-5.90); RED CELL DISTRIBUTION WIDTH 12.6 % (11.6-17.2); WHITE BLOOD COUNT 6.8 TH/MM3 (4.0-11.0)
[2016-11-24 05:56] LABS: ALKALINE PHOSPHATASE 73 U/L (45-117); ALT (GPT) 28 U/L (12-78); ANION GAP 7 MEQ/L (5-15); AST (GOT) 20 U/L (15-37); BICARBONATE 28.9 MEQ/L (21.0-32.0); BLOOD UREA NITROGEN 6 MG/DL (7-18); CHLORIDE 102 MEQ/L (98-107); GLOMERULAR FILTRATION RATE 131 ML/MIN (>89); SODIUM (NA) 138 MEQ/L (136-145); TOTAL BILIRUBIN ADULT 0.3 MG/DL (0.2-1.0)
[2016-11-24] MEDS: SODIUM CHLOR 0.9% 1000 ML INJ 1,000 ML IV SCH ×3 (07:15→23:15)
[2016-11-24] MEDS: LISINOPRIL 20 MG TAB PO SCH (08:58)
[2016-11-24] MEDS: FINASTERIDE 5 MG TAB PO SCH (08:58)
[2016-11-24] MEDS: TAMSULOSIN HCL 0.4 MG CAP PO SCH (08:58)
[2016-11-24] MEDS: DOCUSATE SODIUM 100 MG CAP PO SCH ×2 (08:58→19:51)
[2016-11-24] MEDS: SODIUM CHLORIDE 0.9% FLUSH 5 ML FLUSH IV FLUSH SCH ×2 (08:59→19:51)
[2016-11-24] MEDS: FAMOTIDINE 20 MG/2 ML VIAL IV PUSH SCH ×2 (08:59→19:51)
[2016-11-24] MEDS: CLOPIDOGREL 75 MG TAB PO SCH (08:59)
[2016-11-24] MEDS: buPROPion HCL 100 MG TAB PO SCH ×2 (10:33→19:51)
--- NOTE | 2016-11-24 12:35 | HHI.PR ---
Subjective Remarks Follow up for neck cellulitis. Mr. Chahal is doing better. Denies any fever, chills. He is receiving breathing treatment at the time of this interview. Tolerating liquid food. Objective Vitals Vital Signs Date Time Temp Pulse Resp B/P Pulse Ox O2 Delivery O2 Flow Rate FiO2 11/24/16 10:54 100 Nasal Cannula 3.00 11/24/16 10:00 62 11/24/16 08:00 60 11/24/16 06:00 52 11/24/16 04:00 98.2 59 13 145/64 98 11/24/16 04:00 59 11/24/16 02:00 67 11/24/16 01:49 98.7 67 15 151/65 98 11/24/16 01:30 78 22 158/70 98 Nasal Cannula 2 11/24/16 00:31 99 Nasal Cannula 2.00 11/24/16 00:25 64 22 156/71 97 Nasal Cannula 2 11/23/16 23:30 68 22 155/70 97 Nasal Cannula 2 11/23/16 21:52 61 22 154/70 99 Nasal Cannula 2 11/23/16 20:30 59 18 100 11/23/16 20:30 60 20 11/23/16 20:24 97.5 75 20 197/89 100 I/O 11/23/16 11/23/16 11/23/16 11/24/16 11/24/16 11/24/16 07:00 15:00 23:00 07:00 15:00 23:00 Intake Total 1372 ml Output Total 2940 ml Balance -1568 ml Intake Oral 240 ml IV Total 1132 ml Output Urine Total 2900 ml Drainage Total 40 ml # Bowel Movements 0 Result Diagram: 11/24/163 11/24/16432 Imaging Last Impressions Chest X-Ray 11/23/162025 Signed Impressions: Service Date/Time: Wednesday, November 23, 2016 20:42 - CONCLUSION: No acute disease. Derrick Hooks MD Neck CT 11/23/16 0000 Signed Impressions: Service Date/Time: Wednesday, November 23, 2016 22:17 - CONCLUSION: 1. Postsurgical changes left face, neck and left chest. 2. Airway is intact. Derrick Hooks MD Chest CT 11/23/16 0000 Signed Impressions: Service Date/Time: Wednesday, November 23, 2016 22:17 - CONCLUSION: 1. No infiltrate, mass or pleural effusion. 2. 7 mm nodule in the right lower lobe, likely benign. Followup CT chest in 3 months recommended for stability. 3. Cardiomegaly and coronary artery calcifications. Derrick Hooks MD Objective Remarks GENERAL: Alert, Oriented x3 , NAD. SKIN: Warm and dry. HEAD: Normocephalic except post surgical changes to the face. EYES: No scleral icterus. No injection or drainage. NECK: Large swelling and edema over left neck. Surgical changes noted on the left jaw area as well as left chest area. CARDIOVASCULAR: Regular rate and rhythm without murmurs, gallops, or rubs. RESPIRATORY: Breath sounds equal bilaterally. No accessory muscle use. GASTROINTESTINAL: Abdomen soft, non-tender, nondistended. MUSCULOSKELETAL: No cyanosis, or edema. BACK: Nontender without obvious deformity. No CVA tenderness. Procedures None. A/P Assessment and Plan Mr. Chahal is a 61 year old male with a history of left jaw malignancy, diabetes mellitus who presented to the ED on 11/24/2016 due to shortness of breath and left sided body pain that started 5 hours prior to this admission. He did not have any fever, chills or sweating. - Acute respiratory failure - currently resolved. - Patient is now on room air. Continue breathing treatments. - Neck swelling has not caused any airway compromise. - Dysphagia - due to neck swelling. - Continue regular diet (soft). We will start supplemental nutrition with Boost. - Left neck cellulitis - s/p left jaw surgery due to carcinoma in situ - performed at [facility]. Skin graft done from his chest. - Patient is currently on Vancomycin and Zosyn which were initiated by ICU. - Blood cultures negative so far. No leukocytosis. - PO regimen may be considered and patient can follow up with his surgeons at [facility]. - Diabetes mellitus - Continue Levemir 20 units QHS, sliding scale insulin. - Hyperlipidemia - Continue Lipitor QHS. - Hypertension - Continue Lisinopril 20mg Qday. - BPH - continue Finasteride. Alternative code. Lovenox. Jeffery Ayala DO Nov 24, 2016 12:35
[2016-11-24] MEDS: VANCOMYCIN 1,000 MG/NS 250 ML IV SCH ×4 (14:53→21:32)
[2016-11-24] MEDS: ATORVASTATIN 40 MG TAB PO SCH (19:51)
[2016-11-24] MEDS: INSULIN DETEMIR 100 UNITS/ML VIAL SQ SCH (19:52)
[2016-11-24] MEDS ORDERED: KETOROLAC TROMETHAMINE 30 MG/ML (IVP) VIAL IV PUSH ONE (22:00)
[2016-11-25] VITALS (9 sets, daily range): BP systolic 133–180; BP diastolic 62–77; PULSE 51–85; RESP 12–22; TEMP 97.4–98.6; O2SAT 93–98
[2016-11-25] MEDS: CHLORHEXIDINE GLUCONATE 2 % 1 PACK (2 CLOTHS) TOP SCH (04:00)
[2016-11-25] MEDS: PIPERACIL-TAZO 3.375 GM PREMIX 50 ML IV SCH ×4 (04:03→22:27)
[2016-11-25] MEDS ORDERED: PHARMACY ORDERED LAB XX ONE (05:45)
[2016-11-25] MEDS: INSULIN NovoLIN REGULAR SUPPLEMENTAL SCALE SQ SCH ×4 (06:24→22:30)
[2016-11-25] MEDS: HYDROmorphone HCL PF 1 MG/ML VIAL IV PUSH PRN ×2 (06:25→10:35)
[2016-11-25] MEDS: SODIUM CHLOR 0.9% 1000 ML INJ 1,000 ML IV SCH (07:15)
[2016-11-25] MEDS: VANCOMYCIN 1,000 MG/NS 250 ML IV SCH ×2 (07:56)
--- NOTE | 2016-11-25 08:10 | HHI.PR ---
Subjective Remarks Follow up for neck cellulitis. Mr. Chahal is doing well. Tolerating soft food and liquid well. Denies any chest pain, shortness of breath, fever or chills. He is having persistent pain on the left side of the neck and chest likely due to post surgical changes. Objective Vitals Vital Signs Date Time Temp Pulse Resp B/P Pulse Ox O2 Delivery O2 Flow Rate FiO2 11/25/16 07:54 98 Nasal Cannula 2.00 11/25/16 06:00 85 11/25/16 04:00 53 11/25/16 04:00 98.5 53 14 141/62 93 11/25/16 02:00 51 11/25/16 00:00 98.6 53 22 133/63 94 11/25/16 00:00 53 11/24/16 22:00 64 11/24/16 20:00 97.7 58 19 133/65 98 11/24/16 20:00 58 11/24/16 19:02 95 21 11/24/16 18:00 68 11/24/16 16:00 98.8 51 16 128/58 94 11/24/16 16:00 70 11/24/16 15:00 92 11/24/16 14:00 69 11/24/16 12:00 98.2 50 15 147/66 92 11/24/16 12:00 65 11/24/16 11:33 15 11/24/16 10:54 100 Nasal Cannula 3.00 11/24/16 10:00 62 I/O 11/24/16 11/24/16 11/24/16 11/25/16 11/25/16 11/25/16 07:00 15:00 23:00 07:00 15:00 23:00 Intake Total 1372 ml 1202 ml 1106 ml 940 ml Output Total 2940 ml 610 ml 450 ml 420 ml Balance -1568 ml 592 ml 656 ml 520 ml Intake Oral 240 ml 480 ml 480 ml IV Total 1132 ml 1202 ml 626 ml 460 ml Output Urine Total 2900 ml 560 ml 450 ml 400 ml Drainage Total 40 ml 50 ml 20 ml # Bowel Movements 0 0 0 Result Diagram: 11/24/163 11/24/16432 Imaging Last Impressions Chest X-Ray 11/23/162025 Signed Impressions: Service Date/Time: Saturday, November 23, 2016 20:42 - CONCLUSION: No acute disease. Derrick Hooks MD Neck CT 11/23/16 0000 Signed Impressions: Service Date/Time: Wednesday, November 23, 2016 22:17 - CONCLUSION: 1. Postsurgical changes left face, neck and left chest. 2. Airway is intact. Derrick Hooks MD Chest CT 11/23/16 0000 Signed Impressions: Service Date/Time: Wednesday, November 23, 2016 22:17 - CONCLUSION: 1. No infiltrate, mass or pleural effusion. 2. 7 mm nodule in the right lower lobe, likely benign. Followup CT chest in 3 months recommended for stability. 3. Cardiomegaly and coronary artery calcifications. Derrick Hooks MD Objective Remarks GENERAL: Alert, Oriented x3 , NAD. SKIN: Warm and dry. HEAD: Normocephalic except post surgical changes to the face. EYES: No scleral icterus. No injection or drainage. NECK: Large swelling and edema over left neck. Surgical changes noted on the left jaw area as well as left chest area. CARDIOVASCULAR: Regular rate and rhythm without murmurs, gallops, or rubs. RESPIRATORY: Breath sounds equal bilaterally. No accessory muscle use. GASTROINTESTINAL: Abdomen soft, non-tender, nondistended. MUSCULOSKELETAL: No cyanosis, or edema. BACK: Nontender without obvious deformity. No CVA tenderness. Procedures None. A/P Assessment and Plan Mr. Chahal is a 61 year old male with a history of left jaw malignancy, diabetes mellitus who presented to the ED on 11/24/2016 due to shortness of breath and left sided body pain that started 5 hours prior to this admission. He did not have any fever, chills or sweating. - Acute respiratory failure - currently resolved. - Patient is on nasal cannula. Continue breathing treatments. - Neck swelling has not caused any airway compromise. - Dysphagia - due to neck swelling. - Continue regular diet (soft). Continue supplemental nutrition with Boost. - Left neck cellulitis - s/p left jaw surgery due to carcinoma in situ - performed at [facility]. Skin graft done from his chest. - Patient is currently on Vancomycin and Zosyn which were initiated by ICU. - Blood cultures negative so far. No leukocytosis. - Will consult ID for further recommendations. - Will also consult ENT to get any recommendations for this hospital course. Patient will follow up with his ENT doctor at [facility] in two weeks. - Diabetes mellitus - Continue Levemir 20 units QHS, sliding scale insulin. - Hyperlipidemia - Continue Lipitor QHS. - Hypertension - Continue Lisinopril 20mg Qday. - BPH - continue Finasteride. - PT consult. Alternative code. Lovenox. Jeffery Ayala DO Nov 25, 2016 8:10 am
[2016-11-25] MEDS ORDERED: BISACODYL 10 MG SUPP RECTAL PRN (08:15)
[2016-11-25] MEDS ORDERED: MAGNESIUM HYDROXIDE SUSP 30 ML CUP PO PRN (08:15)
[2016-11-25] MEDS: SODIUM CHLORIDE 0.9% FLUSH 5 ML FLUSH IV FLUSH SCH ×2 (09:00→22:27)
[2016-11-25] MEDS: DOCUSATE SODIUM 100 MG CAP PO SCH ×2 (09:29→22:29)
[2016-11-25] MEDS: POLYETHYLENE GLYCOL 17 GM PKG PO SCH (09:29)
[2016-11-25] MEDS: FAMOTIDINE 20 MG/2 ML VIAL IV PUSH SCH ×2 (09:29→22:26)
[2016-11-25] MEDS: buPROPion HCL 100 MG TAB PO SCH ×2 (09:29→22:26)
[2016-11-25] MEDS: CLOPIDOGREL 75 MG TAB PO SCH (09:30)
[2016-11-25] MEDS: TAMSULOSIN HCL 0.4 MG CAP PO SCH (09:30)
[2016-11-25] MEDS: LISINOPRIL 20 MG TAB PO SCH (09:30)
[2016-11-25] MEDS: FINASTERIDE 5 MG TAB PO SCH (09:30)
--- NOTE | 2016-11-25 10:26 | PD.CONS ---
History of Present Illness Service Infectious disease Consult Requested By Dr. Jhonathan Ayala Reason for Consult Evaluate patient with swelling on the left side of the neck, recommend antibiotics Primary Care Physician No Primary Care Physician Diagnoses: History of Present Illness Patient seen and examined. Records reviewed. Patient is a 61-year-old male brought to the hospital for evaluation of shortness of breath, pain and swelling in the left side of his neck, and some swallowing difficulty. 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 According to the patient he received radiation therapy for 3 weeks, but did not finish the plan 6 weeks because of the complications that he was experiencing from the radiation. More recently, probably in the last several months, he developed swelling on his left lower jaw area, and he was evaluated and subsequently underwent surgical resection of his jaw bone followed by reconstructive surgery done at [facility] in [place]. He was discharged to a rehabilitation facility last Nov 21 and during that time he had one REBEKAH drain on his left lower chest. According to the patient he initially had four, and the 3 were removed before he was discharged and he was left with 1. His REBEKAH was being emptied at least every 4 hours as per instructions from the surgeon. According to him, he had some mild swelling on the left side of his neck, but one day prior to admission he started noticing increased swelling, and it progressively worsened that he had a sensation of shortness of breath as well as swallowing difficulty. There was no mention that he had any fever or chills or sweats. He was not on any antibiotics or any steroid when he was discharge from the hospital. Not really coughing, no drooling and no vomiting. His incisions have been fairly dry with no significant drainage. Imaging studies showed that his airway was patent, and he has some surgical changes noted. He has not been febrile here. His WBC is normal. Patient was admitted with a diagnosis of cellulitis, and has been on vancomycin and Zosyn. Patient has noted some mild improvement as far as his shortness of breath and swallowing. He is not drooling. He is not on any supplemental oxygen. Infectious disease consultation has been requested to make recommendation regarding his antibiotics. Review of Systems Constitutional: DENIES: Fever, Chills, Night Sweats Eyes: DENIES: Eye pain Ears, nose, mouth, throat: COMPLAINS OF: Throat pain, DENIES: Nasal discharge , Sinus Pain Respiratory: COMPLAINS OF: Shortness of breath, DENIES: Cough, Sputum production Cardiovascular: DENIES: Chest pain, Palpitations Gastrointestinal: COMPLAINS OF: Difficulty Swallowing, DENIES: Abdominal pain , Diarrhea, Nausea, Vomiting Genitourinary: DENIES: Dysuria Musculoskeletal: DENIES: Joint pain, Joint Swelling Integumentary: DENIES: Rash Neurologic: DENIES: Headache Psychiatric: DENIES: Hallucinations Past Family Social History Allergies: Coded Allergies: Morphine (Verified Allergy, Unknown, swelling, 11/23/16) Past Medical History Tongue CA about 8 years ago Lip CA lower lip L, had surgery at [facility] last year - given 3 weeks XRT, but did not finish 6 weeks planned XRT CA L jaw bone, surgery done in [facility] first week of October with reconstructive surgery, looks like a muscle flap reconstruction from his L pectoralis muscle Arthritis High Cholesterol Diabetes Hypertension Past Surgical History Appendectomy Surgery for removal of tongue CA 8 years ago, done in [place], [place] Surgery L lower lip for CA done at [facility] in [place] Recent surgery on jaw bone CA with reconstructive surgery first week of october 2016 Active Ordered Medications Tylenol Albuterol Lipitor Dulcolax Wellbutrin Plavix Colace Lovenox Pepcid Fentanyl patch Proscar Dilaudid Insulin Prinivil Magnesium Reglan Zofran Oxycodone Zosyn MiraLAX Flomax Vancomycin Ambien Social History No smoking No alcohol abuse No illicit drug use Physical Exam Vital Signs Vital Signs Date Time Temp Pulse Resp B/P Pulse Ox O2 Delivery O2 Flow Rate FiO2 11/25/16 08:00 98.5 62 12 180/77 98 11/25/16 08:00 62 11/25/16 07:54 98 Nasal Cannula 2.00 11/25/16 06:00 85 11/25/16 04:00 53 11/25/16 04:00 98.5 53 14 141/62 93 11/25/16 02:00 51 11/25/16 00:00 98.6 53 22 133/63 94 11/25/16 00:00 53 11/24/16 22:00 64 11/24/16 20:00 97.7 58 19 133/65 98 11/24/16 20:00 58 11/24/16 19:02 95 21 11/24/16 18:00 68 11/24/16 16:00 98.8 51 16 128/58 94 11/24/16 16:00 70 11/24/16 15:00 92 11/24/16 14:00 69 11/24/16 12:00 98.2 50 15 147/66 92 11/24/16 12:00 65 11/24/16 11:33 15 11/24/16 10:54 100 Nasal Cannula 3.00 11/24/16 10:00 62 Physical Exam GENERAL: This is an obese, well-developed male, awake and alert, not in respiratory distress, has swelling on his submental, L face, L neck, and L upper chest. SKIN: Warm and dry, no generalized rash. HEAD: Atraumatic. Normocephalic. No temporal or scalp tenderness. EYES: [place] conjunctivae. Pupils equal round and reactive. Extraocular motions intact. No scleral icterus. No injection or drainage. Has some ptosis in the left eye. ENT: Nose without bleeding, or purulent drainage. Moist mucosa, limited opening of his mouth. Has swelling on L side of his face, and from the chin to jaw area. NECK: Swelling in submental region, submandibular area with dry incisions and some mild redness along the incision, with ebenezer in place. Area is soft, no fluctuance. There is prominence that goes down to the supraclavicular and L upper chest ?the flap, with some ecchymoses, not fluctuant, not indurated, no significant tenderness. Minimal redness mostly under the chin. All ebenezer in place. CARDIOVASCULAR: Regular rate and rhythm, wit soft murmur at base of the heart RESPIRATORY: Clear to auscultation. Breath sounds equal bilaterally. No wheezes , rales, or rhonchi. Has incisions on L side of his chest with ebenezer in place , dry, with no evidence of wound infection. In the lower chest is one REBEKAH drain in place with dark bloody fluid GASTROINTESTINAL: Abdomen soft, obese, non-tender, nondistended. Bowel sounds are present and normoactive. No hepato-splenomegaly, or palpable masses. No guarding. MUSCULOSKELETAL: Extremities without clubbing, cyanosis, or edema. No joint tenderness, effusion, or edema noted. No calf tenderness. Negative Homans sign bilaterally. NEUROLOGICAL: Awake and alert. Cranial nerves II through XII intact. Motor and sensory grossly within normal limits. Five out of 5 muscle strength in all muscle groups. Normal speech. PSYCH: Calm and cooperative LINE: PIV with no evidence of infection Laboratory Laboratory Tests Test 11/25/16 06:04 Vancomycin Level Trough 11.9 Date/Time Procedure Status Source Growth 11/23/16 20:30 Aerobic Blood Culture - Preliminary Resulted Blood Peripheral NO GROWTH IN 1 DAY 11/23/16 20:30 Anaerobic Blood Culture - Preliminary Resulted Blood Peripheral NO GROWTH IN 1 DAY Result Diagram: 11/24/1643211/24/163 Imaging RADIOLOGY STUDIES/FILMS REVIEWED Chest X-Ray 11/23/162025 Signed Impressions: Service Date/Time: Wednesday, November 23, 2016 20:42 - CONCLUSION: No acute disease. Derrick Hooks MD Neck CT 11/23/16 0000 Signed Impressions: Service Date/Time: Wednesday, November 23, 2016 22:17 - CONCLUSION: 1. Postsurgical changes left face, neck and left chest. 2. Airway is intact. Derrick Hooks MD Chest CT 11/23/16 0000 Signed Impressions: Service Date/Time: Wednesday, November 23, 2016 22:17 - CONCLUSION: 1. No infiltrate, mass or pleural effusion. 2. 7 mm nodule in the right lower lobe, likely benign. Followup CT chest in 3 months recommended for stability. 3. Cardiomegaly and coronary artery calcifications. Derrick Hooks MD Assessment and Plan Assessment and Plan IMPRESSION Swelling L side of neck, L upper chest, S/P reconstructive CA, with SOB - CT with patent airway - ?due to swelling from flap CA of L jaw bone S/P surgery RECOMMENDATION Get ENT opinion if any further evaluation needed and recommend any other treatment - ?if he will benefit from short course of steroids to help with swelling He is on Vanco and Zosyn - prob deescalate once seen by ENT Get records from [facility] Monitor progress I will follow along with you Thank you for this consultation Discussed Condition With Explained plan to patient D/W Bee Aguillon MD Nov 25, 2016 10:26
--- NOTE | 2016-11-25 18:25 | MB ---
cc: BRAN RYDER M.D. DATE OF CONSULTATION 11/25/2016 ROOM Currently in 1422. CHIEF COMPLAINT Neck mass, left neck swelling. HISTORY OF THE PRESENT ILLNESS This is a 61-year-old man with previous history of right-sided tongue carcinoma. This is a remote history with greater than 9 years with no recurrence. He had been doing well related to this but unfortunately he developed a second area of a primary with a left lip carcinoma. He underwent resection of this separate tumor at the [facility] in [place], but he did not attain local control. He attempted radiation therapy but he was not able to complete his planned 6-week course due to toxicity. He was ultimately seen then at the [facility] in [place] were he underwent surgery for left lip and left neck carcinoma with Dr. Jamey Brantley. It was found at the current time of surgery that there was significant increase in the lesion and he required extensive procedure. This included a left parotidectomy and left neck dissection. He had excision of his left facial carcinoma and required partial mandibulectomy. He had an application of mandibular reconstruction plate and had reconstruction with a left pectoralis major muscle myocutaneous flap. He had been healing and had generally done well in his postoperative course. He had been discharged to rehabilitation facility and was still having some drainage from REBEKAH drains at this surgical site and at the donor site. He had not been on any antibiotics therapy when he left the hospital and had done well initially and was discharged with planned followup with his surgeon. But he presented here to [facility] over the weekend with increased left neck swelling and some tightness and shortness of breath. Here he has been treated with antibiotic therapy to include vancomycin and Zosyn. He has had improvement, although he still has some swelling in the area but his breathing is fine. His speech is fine. PAST MEDICAL HISTORY Significant for: 1. Morphine allergy. 2. Previous tongue carcinoma. 3. Left lip carcinoma. 4. Arthritis. 5. Cholesterol. 6. Diabetes. 7. Hypertension. PAST SURGICAL HISTORY As above. PHYSICAL EXAMINATION GENERAL: This is a well-developed male. Currently in no distress. He is breathing well. HEAD AND NECK: The external ear canals are clear. The facial and neck examination does show evidence of pectoralis major flap on the left side and the neck with subsequent swelling in the area adjacent. There is no palpable abscess or evidence of drainage. His examination is somewhat limited but he appears to be healing well internally. The right neck shows no masses. ASSESSMENT The patient is status post composite resection parotidectomy and neck dissection on the left. He has a mandibular plate and a pectoralis myocutaneous flap. He is responding to medication. ID had raised the question of a short course of steroids and this would be reasonable to decrease inflammation to facilitate the antibiotic coverage. I would treat him with Decadron 8 mg tonight and then 4 mg b.i.d. tomorrow and would discontinue after that due to potential risk of elevated sugars with his diabetes. He should continue medical therapy. Currently he does appear significantly improved. His airway is obviously clear and if he goes to complete clearing, he could be discharged and followup with Dr. Brantley at [facility]. However, if his course does not continue to improve and then is any question, we could certainly contact [facility] and have him transferred to Dr. Brantley's service as an inpatient. This is reviewed with the patient and he agrees with the course of medical therapy. I have ordered the three doses of steroids only and defer antibiotic therapy to infectious disease. MD KENNETH Iglesias/BARRY /5:25 PM /5:55 PM
[2016-11-25] MEDS ORDERED: DEXAMETHASONE SOD PHOS 4 MG/ML VIAL IV PUSH ONE (19:00)
[2016-11-25] MEDS: VANCOMYCIN 1,500 MG/NS 500 ML IV SCH ×2 (22:27)
[2016-11-25] MEDS: ATORVASTATIN 40 MG TAB PO SCH (22:29)
[2016-11-25] MEDS: INSULIN DETEMIR 100 UNITS/ML VIAL SQ SCH (22:29)
[2016-11-25] MEDS: ZOLPIDEM TARTRATE 5 MG TAB PO PRN (22:45)
[2016-11-25] MEDS: ENOXAPARIN SODIUM 40 MG/0.4 ML SYRINGE SQ SCH (22:46)
[2016-11-26] VITALS (7 sets, daily range): BP systolic 143–167; BP diastolic 65–75; PULSE 60–95; RESP 16–22; TEMP 97.5–98.8; O2SAT 94–99
[2016-11-26] MEDS: PIPERACIL-TAZO 3.375 GM PREMIX 50 ML IV SCH ×2 (02:21→08:54)
[2016-11-26] MEDS: CHLORHEXIDINE GLUCONATE 2 % 1 PACK (2 CLOTHS) TOP SCH (04:00)
[2016-11-26] MEDS: INSULIN NovoLIN REGULAR SUPPLEMENTAL SCALE SQ SCH ×2 (06:09→12:03)
[2016-11-26] MEDS: VANCOMYCIN 1,500 MG/NS 500 ML IV SCH ×4 (08:57→20:33)
[2016-11-26] MEDS: DEXAMETHASONE SOD PHOS 4 MG/ML VIAL IV PUSH SCH ×2 (08:57→20:36)
[2016-11-26] MEDS: DOCUSATE SODIUM 100 MG CAP PO SCH ×2 (08:59→20:35)
[2016-11-26] MEDS: CLOPIDOGREL 75 MG TAB PO SCH (08:59)
[2016-11-26] MEDS: buPROPion HCL 100 MG TAB PO SCH ×2 (08:59→20:36)
[2016-11-26] MEDS: LISINOPRIL 20 MG TAB PO SCH (08:59)
[2016-11-26] MEDS: POLYETHYLENE GLYCOL 17 GM PKG PO SCH (08:59)
[2016-11-26] MEDS: TAMSULOSIN HCL 0.4 MG CAP PO SCH (08:59)
[2016-11-26] MEDS: FINASTERIDE 5 MG TAB PO SCH (08:59)
[2016-11-26] MEDS: SODIUM CHLORIDE 0.9% FLUSH 5 ML FLUSH IV FLUSH SCH ×2 (09:00→20:37)
[2016-11-26] MEDS: FAMOTIDINE 20 MG/2 ML VIAL IV PUSH SCH ×2 (09:03→22:50)
--- NOTE | 2016-11-26 12:43 | HHI.IDPN ---
Subjective Subjective Remarks Notes reviewed Appreciate help of Dr Kumar Patient stated that he had more swelling on L side of his face yesterday afternoon, better this mornig Not SOB Swallowing ok Got decadron Antibiotics Vancomycin Zosyn Lines PIV Past Medical History Tongue CA about 8 years ago Lip CA lower lip L, had surgery at [facility] last year - given 3 weeks XRT, but did not finish 6 weeks planned XRT CA L jaw bone, surgery done in [facility] first week of October with reconstructive surgery, looks like a muscle flap reconstruction from his L pectoralis muscle Arthritis High Cholesterol Diabetes Hypertension Past Surgical History Appendectomy Surgery for removal of tongue CA 8 years ago, done in [place], [place] Surgery L lower lip for CA done at [facility] in [place] Recent surgery on jaw bone CA with reconstructive surgery first week of october 2016 Allergies: Coded Allergies: Morphine (Verified Allergy, Unknown, swelling, 11/23/16) Objective . Vital Signs Date Time Temp Pulse Resp B/P Pulse Ox O2 Delivery O2 Flow Rate FiO2 11/26/16 08:00 98.5 95 20 157/74 96 11/26/16 04:00 97.7 76 20 143/65 94 11/26/16 00:00 98.3 62 22 150/65 99 11/25/16 20:00 98.3 66 20 151/66 97 11/25/16 16:00 97.4 62 20 170/77 98 11/25/16 11/25/16 11/26/16 15:00 23:00 07:00 Intake Total 953 ml 480 ml 120 ml Output Total 1750 ml Balance -797 ml 480 ml 120 ml Intake Oral 560 ml 480 ml 120 ml IV Total 393 ml Output Urine Total 1700 ml Drainage Total 50 ml # Voids 0 2 # Bowel Movements 0 0 . Laboratory Tests Test 11/25/16 11/26/16 22:54 08:35 Creatinine 0.79 MG/DL 0.98 MG/DL Estimat Glomerular Filtration 99 ML/MIN 77 ML/MIN Rate Microbiology Date/Time Procedure Status Source Growth 11/23/16 20:15 Aerobic Blood Culture - Preliminary Resulted Blood Peripheral NO GROWTH IN 3 DAYS 11/23/16 20:15 Anaerobic Blood Culture - Preliminary Resulted Blood Peripheral NO GROWTH IN 3 DAYS 11/23/16 20:30 Aerobic Blood Culture - Preliminary Resulted Blood Peripheral NO GROWTH IN 3 DAYS 11/23/16 20:30 Anaerobic Blood Culture - Preliminary Resulted Blood Peripheral NO GROWTH IN 3 DAYS Imaging Last Impressions Chest X-Ray 11/23/162025 Signed Impressions: Service Date/Time: Wednesday, November 23, 2016 20:42 - CONCLUSION: No acute disease. Derrick Hooks MD Neck CT 11/23/16 0000 Signed Impressions: Service Date/Time: Wednesday, November 23, 2016 22:17 - CONCLUSION: 1. Postsurgical changes left face, neck and left chest. 2. Airway is intact. Derrick Hooks MD Chest CT 11/23/16 0000 Signed Impressions: Service Date/Time: Wednesday, November 23, 2016 22:17 - CONCLUSION: 1. No infiltrate, mass or pleural effusion. 2. 7 mm nodule in the right lower lobe, likely benign. Followup CT chest in 3 months recommended for stability. 3. Cardiomegaly and coronary artery calcifications. Derrick Hooks MD Physical Exam GENERAL: awake and alert, not in respiratory distress, has swelling on his submental, L face, L neck, and L upper chest, looks slightly better SKIN: Warm and dry, no generalized rash. HEENT: [place] conjunctivae. No scleral icterus. Moist mucosa, limited opening of his mouth. Has swelling on L side of his face, and from the chin to jaw area. NECK: Swelling in submental region, submandibular area with dry incisions and some mild redness along the incision, with ebenezer in place. Area is soft, no fluctuance. There is prominence that goes down to the supraclavicular and L upper chest ?the flap, with some ecchymoses, not fluctuant, not indurated, no significant tenderness. Minimal redness mostly under the chin. All ebenezer in place. CARDIOVASCULAR: Regular rate and rhythm, wit soft murmur at base of the heart RESPIRATORY: Clear to auscultation. Breath sounds equal bilaterally. No wheezes , rales, or rhonchi. Has incisions on L side of his chest with ebenezer in place , dry, with no evidence of wound infection. In the lower chest is one REBEKAH drain in place with dark bloody fluid GASTROINTESTINAL: Abdomen soft, obese, non-tender, nondistended. Bowel sounds are present and normoactive. No hepato-splenomegaly, or palpable masses. No guarding. MUSCULOSKELETAL: Extremities without clubbing, cyanosis, or edema. No joint tenderness, effusion, or edema noted. No calf tenderness. Negative Homans sign bilaterally. NEUROLOGICAL: Awake and alert. Cranial nerves II through XII intact. Motor and sensory grossly within normal limits. Five out of 5 muscle strength in all muscle groups. Normal speech. PSYCH: Calm and cooperative LINE: PIV with no evidence of infection Assessment & Plan Remarks IMPRESSION Swelling L side of neck, L upper chest, S/P reconstructive CA, with SOB - CT with patent airway - ?due to swelling from flap CA of L jaw bone S/P surgery RECOMMENDATION Getting steroids Change Zosyn to Levaquin Continue Vancomycin Monitor progress Explained plan to patient Bee Cisneros MD Nov 26, 2016 12:43
[2016-11-26] MEDS: LEVOFLOXACIN 750 MG TAB PO SCH (13:12)
[2016-11-26] MEDS ORDERED: DEXTROSE 50% IN WATER 50 ML VIAL(D50) IV PUSH PRN (14:30)
[2016-11-26] MEDS ORDERED: GLUCAGON 1 MG/ML VIAL OTHER PRN (14:30)
[2016-11-26] MEDS: INSULIN ASPART 1,000 UNITS/10 ML VIAL SQ SCH (15:52)
[2016-11-26] MEDS: INSULIN ASPART SUPPLEMENTAL SCALE SQ SCH ×2 (15:52→20:34)
[2016-11-26] MEDS ORDERED: cloNIDine HCL 0.1 MG TAB PO PRN (16:00)
--- NOTE | 2016-11-26 18:28 | HHI.PR ---
Subjective Remarks Follow up for left sided neck swelling, possible cellulitis. Mr. Chahal is doing well. No acute concerns. His swelling has not gone down. Patient remains in good spirit. Tolerating diet well. No fever, chills. Objective Vitals Vital Signs Date Time Temp Pulse Resp B/P Pulse Ox O2 Delivery O2 Flow Rate FiO2 11/26/16 16:00 98.0 80 20 167/75 97 11/26/16 12:00 98.8 79 20 144/67 94 11/26/16 08:00 98.5 95 20 157/74 96 11/26/16 04:00 97.7 76 20 143/65 94 11/26/16 00:00 98.3 62 22 150/65 99 11/25/16 20:00 98.3 66 20 151/66 97 I/O 11/25/16 11/25/16 11/25/16 11/26/16 11/26/16 11/26/16 07:00 15:00 23:00 07:00 15:00 23:00 Intake Total 940 ml 953 ml 480 ml 120 ml 556 ml Output Total 420 ml 1750 ml Balance 520 ml -797 ml 480 ml 120 ml 556 ml Intake Oral 480 ml 560 ml 480 ml 120 ml IV Total 460 ml 393 ml 556 ml Output Urine Total 400 ml 1700 ml Drainage Total 20 ml 50 ml # Voids 0 2 # Bowel Movements 0 0 0 Result Diagram: 11/24/16 0433 11/26/16 0835 Imaging Last Impressions Chest X-Ray 11/23/162025 Signed Impressions: Service Date/Time: Wednesday, November 23, 2016 20:42 - CONCLUSION: No acute disease. Derrick Hooks MD Neck CT 11/23/16 0000 Signed Impressions: Service Date/Time: Wednesday, November 23, 2016 22:17 - CONCLUSION: 1. Postsurgical changes left face, neck and left chest. 2. Airway is intact. Derrick Hooks MD Chest CT 11/23/16 0000 Signed Impressions: Service Date/Time: Wednesday, November 23, 2016 22:17 - CONCLUSION: 1. No infiltrate, mass or pleural effusion. 2. 7 mm nodule in the right lower lobe, likely benign. Followup CT chest in 3 months recommended for stability. 3. Cardiomegaly and coronary artery calcifications. Derrick Hooks MD Objective Remarks GENERAL: Alert, Oriented x3 , NAD. SKIN: Warm and dry. HEAD: Normocephalic except post surgical changes to the face. EYES: No scleral icterus. No injection or drainage. NECK: Large swelling and edema over left neck. Surgical changes noted on the left jaw area as well as left chest area. CARDIOVASCULAR: Regular rate and rhythm without murmurs, gallops, or rubs. RESPIRATORY: Breath sounds equal bilaterally. No accessory muscle use. GASTROINTESTINAL: Abdomen soft, non-tender, nondistended. MUSCULOSKELETAL: No cyanosis, or edema. BACK: Nontender without obvious deformity. No CVA tenderness. Procedures None. A/P Assessment and Plan Mr. Chahal is a 61 year old male with a history of left jaw malignancy, diabetes mellitus who presented to the ED on 11/24/2016 due to shortness of breath and left sided body pain that started 5 hours prior to this admission. He did not have any fever, chills or sweating. - Acute respiratory failure - currently resolved. - Patient is on nasal cannula. Continue breathing treatments. - Neck swelling has not caused any airway compromise. - Dysphagia - due to neck swelling. - Continue regular diet (soft). Continue supplemental nutrition with Boost. - Left neck cellulitis - s/p left jaw surgery due to carcinoma in situ - performed at [facility]. Skin graft done from his chest. - Patient is currently on Vancomycin and Levaquin - Blood cultures negative so far. No leukocytosis. - ENT evaluated patient and recommended Dexamethasone for 3 days. ID is following. Discussed with ID today. - Diabetes mellitus - Continue Levemir 20 units QHS, sliding scale insulin. - Hyperlipidemia - Continue Lipitor QHS. - Hypertension - Continue Lisinopril 20mg Qday. - BPH - continue Finasteride. Alternative code. Lovenox. Jeffery Ayala DO Nov 26, 2016 18:28
[2016-11-26] MEDS: INSULIN DETEMIR 100 UNITS/ML VIAL SQ SCH (20:34)
[2016-11-26] MEDS: ATORVASTATIN 40 MG TAB PO SCH (20:36)
[2016-11-26] MEDS: ZOLPIDEM TARTRATE 5 MG TAB PO PRN (22:50)
[2016-11-26] MEDS: ENOXAPARIN SODIUM 40 MG/0.4 ML SYRINGE SQ SCH (22:51)
[2016-11-27] MEDS: fentaNYL 75 MCG/HR PATCH T-DERMAL SCH (00:41)
[2016-11-27] MEDS: [UNRECOGNIZED DRUG - REMARK] TD SCH (00:41)
[2016-11-27] MEDS: CHLORHEXIDINE GLUCONATE 2 % 1 PACK (2 CLOTHS) TOP SCH (03:36)
[2016-11-27 04:15] VITALS: BP 123/60; PULSE 60; RESP 16; TEMP 97.7; O2SAT 99
[2016-11-27] MEDS: INSULIN ASPART SUPPLEMENTAL SCALE SQ SCH ×2 (06:06→13:32)
--- NOTE | 2016-11-27 06:53 | HHI.PR ---
Subjective Remarks Feels better. Eating and breathing normally. Objective Vital Signs Date Time Temp Pulse Resp B/P Pulse Ox O2 Delivery O2 Flow Rate FiO2 11/27/16 04:15 97.7 60 16 123/60 99 11/26/16 23:57 97.5 60 16 160/74 96 11/26/16 20:15 98.1 69 16 151/69 98 11/26/16 16:00 98.0 80 20 167/75 97 11/26/16 12:00 98.8 79 20 144/67 94 11/26/16 08:00 98.5 95 20 157/74 96 I/O 11/26/16 11/26/16 11/26/16 11/27/16 11/27/16 11/27/16 07:00 15:00 23:00 07:00 15:00 23:00 Intake Total 120 ml 1036 ml 480 ml 240 ml Output Total 575 ml 985 ml Balance 120 ml 1036 ml -95 ml -745 ml Intake Oral 120 ml 480 ml 480 ml 240 ml IV Total 556 ml Output Urine Total 575 ml 950 ml Drainage Total 35 ml # Voids 2 5 2 # Bowel Movements 0 0 0 0 Result Diagram: 11/24/16 0433 11/26/16 0835 Assessment and Plan Assessment and Plan Left neck cancer surgery and reconstruction with PECTORALIS MYOCUTANEOUS FLAP, not a skin graft. This is a flap of the transferred pectoralis muscle from his left chest with an overlying skin paddle. It is large and bulky and appears to be at it's normal size now. It will not change quickly. Recommend we get this patient out of the hospital and allow him to get back to his operating surgeon Dr Brantley to check the surgical area. He appears much improved and likely can be discharged home to outpatient follow up. ENT prn. Roberto Kumar MD Nov 27, 2016 06:53
[2016-11-27] MEDS ORDERED: fentaNYL 75 MCG/HR PATCH T-DERMAL SCH (07:27)
[2016-11-27] MEDS ORDERED: PHARMACY ORDERED LAB XX ONE (07:45)
[2016-11-27 08:00] VITALS: BP 142/63; PULSE 57; RESP 20; TEMP 97.1; O2SAT 96
[2016-11-27] MEDS: VANCOMYCIN 1,500 MG/NS 500 ML IV SCH ×2 (08:14)
[2016-11-27] MEDS: INSULIN ASPART 1,000 UNITS/10 ML VIAL SQ SCH ×2 (08:15→13:33)
[2016-11-27] MEDS: SODIUM CHLORIDE 0.9% FLUSH 5 ML FLUSH IV FLUSH SCH (08:15)
[2016-11-27] MEDS: LISINOPRIL 20 MG TAB PO SCH (08:18)
[2016-11-27] MEDS: CLOPIDOGREL 75 MG TAB PO SCH (08:18)
[2016-11-27] MEDS: buPROPion HCL 100 MG TAB PO SCH (08:18)
[2016-11-27] MEDS: LEVOFLOXACIN 750 MG TAB PO SCH (08:18)
[2016-11-27] MEDS: TAMSULOSIN HCL 0.4 MG CAP PO SCH (08:18)
[2016-11-27] MEDS: FAMOTIDINE 20 MG/2 ML VIAL IV PUSH SCH (08:18)
[2016-11-27] MEDS: DOCUSATE SODIUM 100 MG CAP PO SCH (08:18)
[2016-11-27] MEDS: FINASTERIDE 5 MG TAB PO SCH (08:18)
[2016-11-27] MEDS: POLYETHYLENE GLYCOL 17 GM PKG PO SCH (08:19)
--- NOTE | 2016-11-27 10:49 | HHI.IDPN ---
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, had surgery at [facility] last year - given 3 weeks XRT, but did not finish 6 weeks planned XRT CA L jaw bone, surgery done in [facility] first week of October with reconstructive surgery, looks like a muscle flap reconstruction from his L pectoralis muscle Arthritis High Cholesterol Diabetes Hypertension Past Surgical History Appendectomy Surgery for removal of tongue CA 8 years ago, done in [place], [place] Surgery L lower lip for CA done at [facility] in [place] Recent surgery on jaw bone CA with reconstructive surgery first week of october 2016 Allergies: Coded Allergies: Morphine (Verified Allergy, Unknown, swelling, 11/23/16) Objective . Vital Signs Date Time Temp Pulse Resp B/P Pulse Ox O2 Delivery O2 Flow Rate FiO2 11/27/16 08:00 97.1 57 20 142/63 96 11/27/16 04:15 97.7 60 16 123/60 99 11/26/16 23:57 97.5 60 16 160/74 96 11/26/16 20:15 98.1 69 16 151/69 98 11/26/16 16:00 98.0 80 20 167/75 97 11/26/16 12:00 98.8 79 20 144/67 94 11/26/16 11/26/16 11/27/16 15:00 23:00 07:00 Intake Total 1036 ml 480 ml 240 ml Output Total 575 ml 985 ml Balance 1036 ml -95 ml -745 ml Intake Oral 480 ml 480 ml 240 ml IV Total 556 ml Output Urine Total 575 ml 950 ml Drainage Total 35 ml # Voids 5 2 # Bowel Movements 0 0 0 . Laboratory Tests Test 11/25/16 11/26/16 22:54 08:35 Creatinine 0.79 MG/DL 0.98 MG/DL Estimat Glomerular Filtration 99 ML/MIN 77 ML/MIN Rate Imaging Last Impressions Chest X-Ray 11/23/162025 Signed Impressions: Service Date/Time: Wednesday, November 23, 2016 20:42 - CONCLUSION: No acute disease. Derrick Hooks MD Neck CT 11/23/16 0000 Signed Impressions: Service Date/Time: Wednesday, November 23, 2016 22:17 - CONCLUSION: 1. Postsurgical changes left face, neck and left chest. 2. Airway is intact. Derrick Hooks MD Chest CT 11/23/16 0000 Signed Impressions: Service Date/Time: Wednesday, November 23, 2016 22:17 - CONCLUSION: 1. No infiltrate, mass or pleural effusion. 2. 7 mm nodule in the right lower lobe, likely benign. Followup CT chest in 3 months recommended for stability. 3. Cardiomegaly and coronary artery calcifications. Derrick Hooks MD Physical Exam GENERAL: awake and alert, not in respiratory distress, seem to have less swelling on his submental, L face, L neck, and L upper chest SKIN: Warm and dry, no generalized rash. HEENT: [place]on conjunctivae. No scleral icterus. Moist mucosa, limited opening of his mouth. Has swelling on L side of his face, and from the chin to jaw area. NECK: Less swelling in submental region, submandibular area with dry incisions and some mild redness along the incision, with ebenezer in place. Area is soft, no fluctuance. L neck and upper chest stable. Incisions are dry CARDIOVASCULAR: Regular rate and rhythm, wit soft murmur at base of the heart RESPIRATORY: Clear to auscultation. Has incisions on L side of his chest with ebenezer in place, dry, with no evidence of wound infection. In the lower chest is one REBEKAH drain in place with dark bloody fluid GASTROINTESTINAL: Abdomen soft, obese, non-tender, nondistended. Bowel sounds are present and normoactive. MUSCULOSKELETAL: Extremities without clubbing, cyanosis, or edema. No calf tenderness. PSYCH: Calm and cooperative LINE: PIV with no evidence of infection Assessment & Plan Remarks IMPRESSION Swelling L side of neck, L upper chest, S/P reconstructive CA, with SOB - CT with patent airway - ?due to swelling from flap CA of L jaw bone S/P surgery RECOMMENDATION OK to D/C Give 7 days Clinda 300 TID Levaquin He has fup with his ENT in [facility] D[facility]W Dr Ayala Explained plan to patient Bee Cisneros MD Nov 27, 2016 10:49
[2016-11-27] MEDS ORDERED: CLIN1CAP6 PO (11:29)
[2016-11-27] MEDS ORDERED: LEVA750T PO (11:29)
[2016-11-27] MEDS ORDERED: FENT75DI T-DERMAL (11:29)
[2016-11-27] MEDS ORDERED: OXYC-395 PO (11:29)
--- NOTE | 2016-11-27 11:31 | HHI.DS ---
Discharge Summary Admission Date Nov 23, 2016 at 11:12 pm Discharge Date: Nov 27, 2016 Admitting Diagnosis neck cellulitis. Dyspnea. (1) Cellulitis, neck ICD Code: L03.221 Diagnosis: Principal Procedures None. Brief History - From Admission 61-year-old male that presents for evaluation of pain in his neck. 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 Per patient has been doing well since but for the past 5 hours his been having more shortness of breath and pain in the left side of his body. He denies any fevers chills or sweats. Patient has fresh surgical scars on his chest, neck, left face and behind the left ear. He has an allergy to morphine and takes a fentanyl patch. Patient does have significant swelling in this area and surgical scars in the area. He does have erythema around it as well. CBC/BMP: 11/24/16 0433 11/26/16 0835 Significant Findings Laboratory Tests Test 11/25/16 11/26/16 11/27/16 06:04 08:35 08:10 Vancomycin Level Trough 11.9 MCG/ML 10.7 MCG/ML (5.0-10.0) (5.0-10.0) Estimat Glomerular Filtration 77 ML/MIN (>89) Rate Imaging Last Impressions Chest X-Ray 11/23/162025 Signed Impressions: Service Date/Time: Wednesday, November 23, 2016 20:42 - CONCLUSION: No acute disease. Derrick Hooks MD Neck CT 11/23/16 0000 Signed Impressions: Service Date/Time: Wednesday, November 23, 2016 22:17 - CONCLUSION: 1. Postsurgical changes left face, neck and left chest. 2. Airway is intact. Derrick Hooks MD Chest CT 11/23/16 0000 Signed Impressions: Service Date/Time: Wednesday, November 23, 2016 22:17 - CONCLUSION: 1. No infiltrate, mass or pleural effusion. 2. 7 mm nodule in the right lower lobe, likely benign. Followup CT chest in 3 months recommended for stability. 3. Cardiomegaly and coronary artery calcifications. Derrick Hooks MD PE at Discharge GENERAL: Alert, Oriented x3 , NAD. SKIN: Warm and dry. HEAD: Normocephalic except post surgical changes to the face. EYES: No scleral icterus. No injection or drainage. NECK: Large swelling and edema over left neck. Surgical changes noted on the left jaw area as well as left chest area. CARDIOVASCULAR: Regular rate and rhythm without murmurs, gallops, or rubs. RESPIRATORY: Breath sounds equal bilaterally. No accessory muscle use. GASTROINTESTINAL: Abdomen soft, non-tender, nondistended. MUSCULOSKELETAL: No cyanosis, or edema. BACK: Nontender without obvious deformity. No CVA tenderness. Pt update on day of discharge Patient is doing well. ENT and ID cleared for discharge. No fever, chills. Hospital Course Mr. Chahal is a 61 year old male with a history of left jaw malignancy, diabetes mellitus who presented to the ED on 11/24/2016 due to shortness of breath and left sided body pain that started 5 hours prior to this admission. He did not have any fever, chills or sweating. - Acute respiratory failure - currently resolved. - Patient is on nasal cannula. Continue breathing treatments. - Neck swelling has not caused any airway compromise. - Dysphagia - due to neck swelling. - Continue regular diet (soft). Continue supplemental nutrition with Boost. - Left neck cellulitis - s/p left jaw surgery due to carcinoma in situ - performed at [facility]. Skin graft done from his chest. - Patient is currently on Vancomycin and Levaquin. Will discharge patient on Levaquin and Clindamycin. - Blood cultures negative so far. No leukocytosis. - ENT evaluated patient and recommended Dexamethasone for 3 days. ID is following. Discussed with ID today. - Diabetes mellitus - Continue Levemir 20 units QHS, sliding scale insulin. - Hyperlipidemia - Continue Lipitor QHS. - Hypertension - Continue Lisinopril 20mg Qday. - BPH - continue Finasteride. Based on ENT and ID input, we will discharge patient today. Patient will follow up with his primary ENT doctors at [facility]. Pt Condition on Discharge: Good Discharge Disposition: Discharge Home Discharge Time: > 30 minutes Discharge Instructions DIET: Follow Instructions for: As Tolerated, No Restrictions Activities you can perform: Regular-No Restrictions Follow up Referrals: Ear Nose Throat - 2 Weeks with [facility] PCP Follow-up - 1 Week New Medications: Clindamycin (Clindamycin) 300 Mg Cap 300 MG PO TID Infection #21 Ref 0 CAP Levofloxacin (Levaquin) 750 Mg Tab 750 MG PO DAILY Infection #7 TAB Oxycodone (Oxycodone) 10 Mg Tab 10 MG PO Q4H PRN PAIN 1-5 #30 TAB Continued Medications: Acetaminophen Liq (Acetaminophen Liq) 160 Mg/5 Ml Elx 20.3 MG PO Q6HR PRN PAIN SCALE 1 TO 10 #118 Ref 0 ML Atorvastatin (Atorvastatin) 40 Mg Tab 40 MG PO HS Cholesterol Management #30 Ref 0 TAB Bisacodyl Supp (Dulcolax Supp) 10 Mg Supp 10 MG RECTAL DAILY PRN CONSTIPATION #12 Ref 0 SUPP Bupropion HCl (Bupropion HCl) 100 Mg Tab 100 MG PO BID Control Depression Ref 0 TAB Clopidogrel (Clopidogrel) 75 Mg Tab 75 MG PO DAILY Blood Clot Prevention #30 Ref 0 TAB Fentanyl Patch 72 HR (Fentanyl Patch 72 HR) 75 Mcg/Hr Patch 75 MCG T-DERMAL Q72H Remove old patch when new one placed. Pain Management #10 Ref 0 PATCH (This prescription has been renewed) Finasteride Powder (Bulk) (Finasteride Powder (Bulk)) 1 Pow Pow 5 MG PO DAILY Glipizide (Glipizide) 5 Mg Tab 2.5 MG PO DAILY Take 30 minutes before a meal Blood Sugar Management #60 Ref 0 TAB Insulin Glargine Inj (Lantus Solostar Pen Inj) 300 Unit/3 Ml Pen 20 UNITS SQ HS Blood Sugar Management Ref 0 PEN Lisinopril (Lisinopril) 20 Mg Tab 20 MG PO DAILY #30 Ref 0 TAB Magnesium Hydroxide Liq (Milk of Magnesia Liq) 400 Mg/5 Ml Susp 30 ML PO DAILY PRN INDIGESTION OR UPSET STOMACH #1 Ref 0 BOTTLE Metformin Liq (Riomet Liq) 500 Mg/5 Ml Soln 1000 MG PO BIDPC Blood Sugar Management Ref 0 ML Omeprazole (Omeprazole) 20 Mg Tab 20 MG PO BID #30 Ref 0 TAB Tamsulosin (Tamsulosin) 0.4 Mg Cap 0.4 MG PO DAILY Manage Prostate Problems #30 Ref 0 CAP Zolpidem (Ambien) 10 Mg Tab 10 MG PO HS PRN INSOMNIA Ref 0 TAB Discontinued Medications: Oxycodone Liq (Oxycodone Liq) 5 Mg/5 Ml Yolanda 10 ML PO Q4HR Pain Oxycodone Liq (Oxycodone Liq) 5 Mg/5 Ml Yolanda 15 ML PO Q4HR Pain Jeffery Ayala DO Nov 27, 2016 11:31
--- NOTE | 2016-11-27 11:36 | HHI.FF ---
Face to Face Verification Diagnosis: (1) Cellulitis, neck Physical Therapy Order: Evaluate and Treat, Improve ambulation, Strength and gait training Home Health Nursing Order: Signs/symptoms of disease process Medication education-adverse effect Wound care and dressing changes Nursing assessment with vital signs I have seen patient Curtis Chahal on 11/27/16. My clinical findings support the need for the requested home health care services because: Ltd mobility - disease progression Patient has SOB Deconditioned w/ increased weakness Limited ability to care for self Need for psychosocial assistance High risk of falls Infection w/ risk of complications I certify that my clinical findings support that this patient is homebound because: Post-op weakness Unsteady gait/balance Unsafe to leave home unassisted Unable to use public transportation Jeffery Ayala DO Nov 27, 2016 11:36 am
[2016-11-27] MEDS ORDERED: VANCOMYCIN INJ 1,750 MG in SODIUM CHLORID 0.9% 500 ML INJ 500 ML IV SCH (20:00)
[2016-11-29] MEDS ORDERED: PHARMACY ORDERED LAB XX ONE (07:45)
== END 2016-11-27 13:59 | disposition home health service (06) | DRG 862 ==
LOC: NEPE 20:21 → NEDA 23:12 → HIMW 11-24 01:25 → N04B 11-25 14:41
PROVIDERS: ADMIT Hospitalist; ATTEND Hospitalist
DX: T81.4XXA Infection following a procedure, initial encounter (principal); J96.00 Acute respiratory failure, unspecified whether with hypoxia or hypercapnia; R13.10 Dysphagia, unspecified; L03.221 Cellulitis of neck; I11.9 Hypertensive heart disease without heart failure; E11.9 Type 2 diabetes mellitus without complications; R22.1 Localized swelling, mass and lump, neck; I25.10 Atherosclerotic heart disease of native coronary artery without angina pectoris; H02.402 Unspecified ptosis of left eyelid; N40.0 Benign prostatic hyperplasia without lower urinary tract symptoms; E78.5 Hyperlipidemia, unspecified; M19.90 Unspecified osteoarthritis, unspecified site; Z79.4 Long term (current) use of insulin; Z85.810 Personal history of malignant neoplasm of tongue; Z85.830 Personal history of malignant neoplasm of bone; Z88.5 Allergy status to narcotic agent; Z85.819 Personal history of malignant neoplasm of unspecified site of lip, oral cavity, and pharynx; Z92.3 Personal history of irradiation
CPT/HCPCS: 36600; 70491; 71010; 71260; 80053; 80202; 82565; 82805; 82948; 83605; 83735; 85025; 85610; 85730; 86140; 87040; 87641; 93005; 94150; 94664; 96365; 96367; J1100; J1170; J1650; J1815; J1885; J2543; J3370; J7030; J7040; J7050; Q9967